=== PATIENT | female | born 1990 | race Caucasian/White ===

== ENCOUNTER 2019-06-06 22:12 | Emergency (ER) | payer OTHER, SELFPAY ==
[2019-06-07 00:08] LABS: Urine Blood NEGATIVE (NEG); Urine Glucose NEGATIVE (NEG); Urine Protein 1+ (NEG); Urine pH 8.5 (5.0-7.0)
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
[2019-06-07 02:39] VITALS: TEMP 97.6
[2019-06-07 02:41] VITALS: BP 110/73; O2SAT 98
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
== END 2019-06-07 00:48 | disposition home or self-care (01) ==
LOC: ER 22:12
DX: S00.90XA Unspecified superficial injury of unspecified part of head, initial encounter (principal); W22.8XXA Striking against or struck by other objects, initial encounter; Y93.9 Activity, unspecified; Y92.9 Unspecified place or not applicable; Z88.0 Allergy status to penicillin; Z88.1 Allergy status to other antibiotic agents
CPT/HCPCS: 70450; 72125; 81003; 81025; 99283

== ENCOUNTER 2019-10-22 21:50 | Emergency (ER) | payer SELFPAY ==
[2019-10-22] MEDS ORDERED: NA CHLORIDE 0.9% 250 ML ONE (22:39)
[2019-10-22] MEDS ORDERED: VANCOMYCIN 1 GM/VIAL ONE (22:39)
[2019-10-22 23:04] LABS: Absolute Lymphocytes (CBC) 1.5 K/uL (0.7-4.9); Basophils % 0.5 % (0-1.3); Hematocrit 40.2 % (36.0-45.0); Lymphocytes % 12.6 % (15.3-44.8); MPV 7.9 fL (7.6-11.3); RBC Red Blood Cell Count 4.48 M/uL (3.86-4.86)
--- NOTE | 2019-10-22 23:35 | EDPHYS ---
Physician Documentation [facility] Name: Sherie Andres Age: 29 yrs Sex: Female : 1990 Arrival Date: 10/22/2019 Time: 21:53 Bed 10 Private MD: ED Physician Willian Tineo HPI: 10/22 22:26 This 29 yrs old Female presents to ER via Ambulatory with complaints of kdr Toothache, Fever. 22:26 The patient presents with pain, swelling. The problem is located in the right cheek, kdr right buccal mucosa, right muslim and right zygomatic area. Onset: The symptoms/episode began/occurred gradually, Began on Friday and was seen by dentist on Friday and started on Clinda 300 mg PO TID which she states she has been taking religiously since then. She continues to have worsening pain in her right mandible and under her right orbit. Duration: The symptoms are continuous, and are steadily getting worse. Associated signs and symptoms: Pertinent positives: anorexia, fever, nausea, pain, swelling, facial, mandibular, Pertinent negatives: chills, dysphagia. Severity of symptoms: At their worst the symptoms were mild, in the emergency department the symptoms are unchanged. 22:26 The patient has not experienced similar symptoms in the past. The patient has been kdr recently seen by a physician: Dentist on Friday. 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 - Social history:: Smoking status: Patient uses tobacco products, a pack /3 days, Patient/guardian denies using alcohol, street drugs, IV drugs. - Ebola Screening: : No symptoms or risks identified at this time. ROS: 22:26 Eyes: Negative for injury, pain, redness, and discharge, Neck: Negative for injury, kdr pain, and swelling, Cardiovascular: Negative for chest pain, palpitations, and edema, Respiratory: Negative for shortness of breath, cough, wheezing, and pleuritic chest pain, Abdomen/GI: Negative for abdominal pain, nausea, vomiting, diarrhea, and constipation. 22:26 ENT: Positive for dental pain, Negative for ear pain, foreign body sensation, hearing loss, pulling at ears. Exam: 22:26 Constitutional: This is a well developed, well nourished patient who is awake, alert, kdr and in no acute distress. Eyes: Pupils equal round and reactive to light, extra-ocular motions intact. Lids and lashes normal. Conjunctiva and sclera are non-icteric and not injected. Cornea within normal limits. Periorbital areas with no swelling, redness, or edema. Neck: Trachea midline, no thyromegaly or masses palpated, and no cervical lymphadenopathy. Supple, full range of motion without nuchal rigidity, or vertebral point tenderness. No Meningismus. 22:26 Head/face: Noted is tenderness, that is mild, of the right cheek and right zygomatic area. Vital Signs: 22:10 BP 139 / 89; Pulse 106; Resp 18; Temp 98.9; Pulse Ox 100% on R/A; Weight 81.65 kg; mg2 Height 5 ft. 4 in. (162.56 cm); Pain 9/10; 10/23 00:18 BP 123 / 77; Pulse 84; Resp 16; Temp 98.7; Pulse Ox 99% on R/A; Pain 5/10; aa1 10/22 22:10 Body Mass Index 30.90 (81.65 kg, 162.56 cm) mg2 MDM: 10/22 22:26 Data reviewed: vital signs, nurses notes, lab test result(s), radiologic studies. kdr Counseling: I had a detailed discussion with the patient and/or guardian regarding: the historical points, exam findings, and any diagnostic results supporting the discharge/admit diagnosis, lab results, radiology results, the need for outpatient follow up. 23:34 Patient medically screened. kdr 10/22 22:21 Order name: CBC with Diff; Complete Time: 23:26 kdr 10/22 22:21 Order name: Chem 7; Complete Time: 23:26 kdr 10/22 22:25 Order name: CT Facial Bones W/ Con \T\ Mpr kdr Administered Medications: 23:08 Drug: vancoMYCIN 1 grams Route: IVPB; Infused Over: 2 hrs; Site: left antecubital; aa1 10/23 00:17 Follow up: IV Status: Completed infusion; IV Intake: 250ml aa 00:10 Drug: ZyrTEC - Cetirizine 10 mg Route: PO; :17 Follow up: Response: No adverse reaction; Medication administered at discharge. 00:10 Drug: morphine 4 mg Route: IVP; Site: left antecubital; 00:18 Follow up: Response: No adverse reaction; Medication administered at discharge. aa1 Disposition: 10/22/19 23:34 Discharged to Home. Impression: Dental Pain - right maxillary, Acute maxillary sinusitis, unspecified, Acute sinusitis. - Condition is Stable. - Discharge Instructions: Sinusitis, Adult, [id number]. - Prescriptions for pseudoephedrine HCl 30 mg Oral tablet - take 2 tablet by ORAL route every 4-6 hours As needed; 20 tablet. Levaquin 500 mg Oral Tablet - take 1 tablet by ORAL route once daily for 10 days; 10 tablet. - Medication Reconciliation Form, Thank You Letter, Antibiotic Education, Prescription Opioid Use form. - Follow up: Private Physician; When: 2 - 3 days; Reason: If symptoms return, Further diagnostic work-up, Recheck today's complaints, Continuance of care, Re-evaluation by your physician. - Problem is an ongoing problem. - Symptoms have improved. Signatures: Dispatcher [employer] EDMS Evelin Timmons RN RN aa1 Willian Tineo MD MD kdr Chauncey Hays RN RN mg2 Corrections: (The following items were deleted from the chart) 10/22 23:34 23:34 10/22/2019 23:34 Discharged to Home. Impression: Dental Pain. Condition is kdr Stable. Forms are Medication Reconciliation Form, Thank You Letter, Antibiotic Education, Prescription Opioid Use. Follow up: Private Physician; When: 2 - 3 days; Reason: If symptoms return, Further diagnostic work-up, Recheck today's complaints, Continuance of care, Re-evaluation by your physician. Problem is an ongoing problem. Symptoms have improved. kdr 23:35 23:34 10/22/2019 23:34 Discharged to Home. Impression: Dental Pain - right mandibular. kdr Condition is Stable. Forms are Medication Reconciliation Form, Thank You Letter, Antibiotic Education, Prescription Opioid Use. Follow up: Private Physician; When: 2 - 3 days; Reason: If symptoms return, Further diagnostic work-up, Recheck today's complaints, Continuance of care, Re-evaluation by your physician. Problem is an ongoing problem. Symptoms have improved. kdr 23:36 23:35 10/22/2019 23:34 Discharged to Home. Impression: Dental Pain - right maxillary. kdr Condition is Stable. Forms are Medication Reconciliation Form, Thank You Letter, Antibiotic Education, Prescription Opioid Use. Follow up: Private Physician; When: 2 - 3 days; Reason: If symptoms return, Further diagnostic work-up, Recheck today's complaints, Continuance of care, Re-evaluation by your physician. Problem is an ongoing problem. Symptoms have improved. kdr 10/23 00:19 10/22 23:36 10/22/2019 23:34 Discharged to Home. Impression: Dental Pain - right aa1 maxillary; Acute maxillary sinusitis, unspecified; Acute sinusitis. Condition is Stable. Forms are Medication Reconciliation Form, Thank You Letter, Antibiotic Education, Prescription Opioid Use. Follow up: Private Physician; When: 2 - 3 days; Reason: If symptoms return, Further diagnostic work-up, Recheck today's complaints, Continuance of care, Re-evaluation by your physician. Problem is an ongoing problem. Symptoms have improved. kdr
--- NOTE | 2019-10-22 23:35 | ER ---
Nurse's Notes [facility] Name: Sherie Andres Age: 29 yrs Sex: Female : 1990 Arrival Date: 10/22/2019 Time: 21:53 Bed 10 Private MD: Diagnosis: Dental Pain - right maxillary;Acute maxillary sinusitis, unspecified;Acute sinusitis Presentation: 10/22 22:08 Presenting complaint: Patient states: i have tooth abscess for 6 days now. jasen been to mg2 the dentist last Friday and im taking abx clindamycin for 4 days now. Transition of care: patient was not received from another setting of care. Onset of symptoms was October 2019. Risk Assessment: Do you want to hurt yourself or someone else? Patient reports no desire to harm self or others. Initial Sepsis Screen: Does the patient meet any 2 criteria? No. Patient's initial sepsis screen is negative. Does the patient have a suspected source of infection? No. Patient's initial sepsis screen is negative. Care prior to arrival: None. 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 - Social history:: Smoking status: Patient uses tobacco products, a pack /3 days, Patient/guardian denies using alcohol, street drugs, IV drugs. - Ebola Screening: : No symptoms or risks identified at this time. Screenin:30 Abuse screen: Denies threats or abuse. Denies injuries from another. Nutritional aa1 screening: No deficits noted. Tuberculosis screening: No symptoms or risk factors identified. Fall Risk None identified. Assessment: 22:30 General: Appears in no apparent distress. comfortable, Behavior is calm, cooperative, aa1 appropriate for age. Pain: Complains of pain in right buccal mucosa and right zygomatic area and right gnosticism and right cheek. Neuro: Level of Consciousness is awake, alert, obeys commands, Oriented to person, place, time, situation, Moves all extremities. Full function Gait is steady, Speech is normal. Respiratory: Airway is patent Respiratory effort is even, unlabored, Respiratory pattern is regular, symmetrical. GI: No signs and/or symptoms were reported involving the gastrointestinal system. : No signs and/or symptoms were reported regarding the genitourinary system. EENT: Poor dentition noted. Derm: Skin is intact, is healthy with good turgor, Skin is pink, warm \T\ dry. Musculoskeletal: Circulation, motion, and sensation intact. Capillary refill < 3 seconds. 23:47 Reassessment: Patient appears in no apparent distress at this time. Patient and/or aa1 family updated on plan of care and expected duration. Pain level reassessed. Patient is alert, oriented x 3, equal unlabored respirations, skin warm/dry/pink. Pt to be dc'd once IV vancomycin complete. 10/23 00:18 Reassessment: Patient appears in no apparent distress at this time. Patient is alert, aa1 oriented x 3, equal unlabored respirations, skin warm/dry/pink. Discussed d/c \T\ f/u instructions with pt; denies questions or concerns at this time. Ambulatory to lobby with steady gait Patient states feeling better. Vital Signs: 10/22 22:10 BP 139 / 89; Pulse 106; Resp 18; Temp 98.9; Pulse Ox 100% on R/A; Weight 81.65 kg; mg2 Height 5 ft. 4 in. (162.56 cm); Pain 9/10; 10/23 00:18 BP 123 / 77; Pulse 84; Resp 16; Temp 98.7; Pulse Ox 99% on R/A; Pain 5/10; aa1 10/22 22:10 Body Mass Index 30.90 (81.65 kg, 162.56 cm) mg2 ED Course: 10/22 21:53 Patient arrived in ED. jg7 22:10 Triage completed. mg2 22:12 Willian Tineo MD is Attending Physician. kdr 22:13 Arm band placed on. mg2 22:30 Patient has correct armband on for positive identification. Bed in low position. Call aa1 light in reach. 22:34 Evelin Timmons RN is Primary Nurse. aa1 22:40 Initial lab(s) drawn, by me, sent to lab. Inserted saline lock: 22 gauge in left jp3 antecubital area, using aseptic technique. Blood collected. Patient maintains SpO2 saturation greater than 95% on room air. 22:40 Chem 7 Sent. jp3 22:40 CBC with Diff Sent. jp3 23:04 CT Facial Bones W/ Con \T\ Mpr In Process Unspecified. EDMS 10/23 00:18 No provider procedures requiring assistance completed. IV discontinued, intact, aa1 bleeding controlled, No redness/swelling at site. Pressure dressing applied. Administered Medications: 10/22 23:08 Drug: vancoMYCIN 1 grams Route: IVPB; Infused Over: 2 hrs; Site: left antecubital; aa1 10/23 00:17 Follow up: IV Status: Completed infusion; IV Intake: 250ml aa1 00:10 Drug: ZyrTEC - Cetirizine 10 mg Route: PO; aa1 00:17 Follow up: Response: No adverse reaction; Medication administered at discharge. aa1 00:10 Drug: morphine 4 mg Route: IVP; Site: left antecubital; aa1 00:18 Follow up: Response: No adverse reaction; Medication administered at discharge. aa1 Intake: 00:17 IV: 250ml; Total: 250ml. aa1 Outcome: 10/22 23:34 Discharge ordered by . kdr 10/23 00:18 Discharged to home ambulatory, with friend. aa1 Condition: good Discharge instructions given to patient, Instructed on discharge instructions, follow up and referral plans. medication usage, Demonstrated understanding of instructions, follow-up care, medications, Prescriptions given X 2. 00:19 Patient left the ED. aa1 Signatures: Dispatcher [employer] EDMA Evelin Timmons RN RN aa1 Willian Tineo MD MD kdr Gardose, Michele, RN RN mg2 Pisarski, Jacob 3 Katherin Cotto7
[2019-10-22] MEDS ORDERED: CETIRIZINE HCL 5 MG TABLET ONE (23:46)
[2019-10-23] MEDS ORDERED: MORPHINE 2 MG/ML SYR ONE (00:10)
[2019-10-23 00:30] VITALS: BP 123/77; TEMP 98.7; O2SAT 99
--- NOTE | 2019-10-25 12:01 | RAD REPORT ---
EXAM DESCRIPTION: CT - Facial Bones W Con Mpr - 10/23/2019 6:09 am CLINICAL HISTORY: Dental abscess/infection COMPARISON: None. 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 FINDINGS: There is no acute fracture. Right maxillary sinus is nearly completely opacified. Many of the ethmoid air cells are moderately thickened. Orbits and globes are unremarkable. Mastoid air cells are clear. Temporomandibular joints are intact. There are no significant soft tissue abnormalities. IMPRESSION: No definite acute process. No evidence of dental abscess. Electronically signed by: Colt Mathews MD 10/22/2019 11:21 PM LAWN SPRINKLER SERVICER Due to temporary technical issues with the PACS/Fluency reporting system, reports are being signed by the in house radiologist as a courtesy to ensure prompt reporting. The interpreting radiologist is f ully responsible for the content of the report.
== END 2019-10-23 00:19 | disposition home or self-care (01) ==
LOC: ER 21:50
DX: J01.00 Acute maxillary sinusitis, unspecified (principal); Z72.0 Tobacco use; Z88.0 Allergy status to penicillin; Z88.1 Allergy status to other antibiotic agents
CPT/HCPCS: 36415; 70487; 76377; 80048; 85025; 96365; 96375; 99284; J2270; J7030; Q9967

== ENCOUNTER 2021-01-11 09:52 | Emergency (ER) | payer SELFPAY ==
[2021-01-11 10:59] LABS: Absolute Lymphocytes (CBC) 2.2 K/uL (0.7-4.9); Hematocrit 42.5 % (36.0-45.0); Lymphocytes % 37.3 % (15.3-44.8); MPV 7.6 fL (7.6-11.3); RBC Red Blood Cell Count 4.76 M/uL (3.86-4.86)
[2021-01-11] MEDS ORDERED: ONDANSETRON 4 MG/2 ML VIAL ONE (11:04)
[2021-01-11 11:24] LABS: ALT/SGPT 30 U/L (12-78); AST/SGOT 11 U/L (15-37); Alkaline Phosphatase 71 U/L (45-117); BUN Blood Urea Nitrogen 10 mg/dL (7-18); Bicarbonate 25 mmol/L (21-32); Bilirubin Direct 0.2 mg/dL (0-0.2); Bilirubin Total 0.8 mg/dL (0.2-1.0); Glucose Level 111 mg/dL (74-106); Lipase 109 U/L (73-393); Potassium 3.9 mmol/L (3.5-5.1); Sodium Level 141 mmol/L (136-145)
[2021-01-11] MEDS ORDERED: FAMOTIDINE 20 MG/2 ML VIAL IV ONE (11:43)
--- NOTE | 2021-01-11 13:31 | ER ---
Nurse's Notes [facility] Name: Sherie Andres Age: 30 yrs Sex: Female : 1990 Arrival Date: 01/11/2021 Time: 09:55 Bed 8 Private MD: Diagnosis: Nausea and vomiting;Diarrhea, unspecified Presentation: 01/11 10:05 Chief complaint: Patient states: v/d/headache since Friday. Coronavirus screen: Client sv denies travel out of the [place] in the last 14 days. diarrhea, headache, vomiting. Client presents with at least one sign or symptom that may indicate coronavirus-19. Ebola Screen: No symptoms or risks identified at this time. Initial Sepsis Screen: Does the patient meet any 2 criteria? HR > 90 bpm. No. Patient's initial sepsis screen is negative. Does the patient have a suspected source of infection? No. Patient's initial sepsis screen is negative. Risk Assessment: Do you want to hurt yourself or someone else? Patient reports no desire to harm self or others. Onset of symptoms was January 07, 2021. 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 Flu vaccine is not up to date. - Social history:: Smoking status: Patient denies any tobacco usage or history of. Screenin:51 Abuse screen: Denies threats or abuse. Denies injuries from another. Nutritional hb screening: No deficits noted. Tuberculosis screening: No symptoms or risk factors identified. Fall Risk None identified. Assessment: 10:50 General: Appears in no apparent distress. Behavior is calm, cooperative. Pain: Pain hb currently is 2 out of 10 on a pain scale. Neuro: Level of Consciousness is awake, alert, obeys commands, Oriented to person, place, time, situation. Cardiovascular: Patient's skin is warm and dry. Respiratory: Respiratory effort is even, unlabored, Respiratory pattern is regular, symmetrical. GI: Reports cramping, diarrhea, nausea, vomiting. : No signs and/or symptoms were reported regarding the genitourinary system. EENT: No signs and/or symptoms were reported regarding the EENT system. Derm: Skin is pink, warm \T\ dry. Musculoskeletal: No signs and/or symptoms reported regarding the musculoskeletal system. 12:01 Reassessment: Patient appears in no apparent distress at this time. Patient and/or hb family updated on plan of care and expected duration. Pain level reassessed. Patient is alert, oriented x 3, equal unlabored respirations, skin warm/dry/pink. Vital Signs: 10:05 BP 125 / 88; Pulse 91; Resp 16; Temp 99.2; Pulse Ox 100% ; Weight 79.83 kg; Height 5 sv ft. 4 in. (162.56 cm); Pain 0/10; 12:01 BP 99 / 77; Pulse 81; Resp 15; Pulse Ox 99% on R/A; hb 10:05 Body Mass Index 30.21 (79.83 kg, 162.56 cm) sv ED Course: 09:55 Patient arrived in ED. ds1 09:59 Willian Tineo MD is Attending Physician. kdr 10:06 Triage completed. sv 10:07 Arm band placed on Patient placed in an exam room, on a stretcher. sv 10:18 Jenn Barrett, RN is Primary Nurse. hb 10:46 Inserted saline lock: 24 gauge in right hand, using aseptic technique. Blood collected. hb 10:51 Patient has correct armband on for positive identification. Bed in low position. Call hb light in reach. 13:33 No provider procedures requiring assistance completed. IV discontinued, intact, sv bleeding controlled, No redness/swelling at site. Pressure dressing applied. Administered Medications: 10:50 Drug: Zofran (Ondansetron) 4 mg Route: IVP; Site: right hand; hb 11:30 Follow up: Response: No adverse reaction hb 11:22 Drug: Pepcid (famotidine) 20 mg Route: IVP; Site: right hand; hb Outcome: 13:30 Discharge ordered by MD. kdr 13:33 Discharged to home ambulatory. sv 13:33 Condition: improved 13:33 Discharge instructions given to patient, Instructed on discharge instructions, follow up and referral plans. medication usage, Demonstrated understanding of instructions, follow-up care, medications, Prescriptions given X 1. 13:34 Patient left the ED. sv Signatures: Nguyen Barker RN RN sv Rittger, Kevin, MD MD [facility] Tyrell, Babita ds1 Jenn Barrett RN RN hb
--- NOTE | 2021-01-11 13:31 | EDPHYS ---
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 Flu vaccine is not up to date. - Social history:: Smoking status: Patient denies any tobacco usage or history of. Vital Signs: 10:05 BP 125 / 88; Pulse 91; Resp 16; Temp 99.2; Pulse Ox 100% ; Weight 79.83 kg; Height 5 sv ft. 4 in. (162.56 cm); Pain 0/10; 12:01 BP 99 / 77; Pulse 81; Resp 15; Pulse Ox 99% on R/A; hb 10:05 Body Mass Index 30.21 (79.83 kg, 162.56 cm) sv MDM: 13:30 Patient medically screened. [facility] 01/11 09:59 Order name: Basic Metabolic Panel; Complete Time: 12:45 [facility] 01/11 09:59 Order name: CBC with Diff; Complete Time: 12:45 [facility] 01/11 09:59 Order name: Hepatic Function; Complete Time: 12:45 kdr 01/11 09:59 Order name: Lipase; Complete Time: 12:45 kdr 01/11 09:59 Order name: IV Saline Lock; Complete Time: 10:50 kdr 01/11 09:59 Order name: Labs collected and sent; Complete Time: 10:50 kdr 01/11 12:57 Order name: PO challenge; Complete Time: 13:14 sv Administered Medications: 10:50 Drug: Zofran (Ondansetron) 4 mg Route: IVP; Site: right hand; hb 11:30 Follow up: Response: No adverse reaction hb 11:22 Drug: Pepcid (famotidine) 20 mg Route: IVP; Site: right hand; hb Disposition: 01/11/21 13:30 Discharged to Home. Impression: Nausea and vomiting, Diarrhea, unspecified. - Condition is Stable. - Discharge Instructions: Nausea and Vomiting, Adult, [id number], Diarrhea, Adult, [id number]. - Prescriptions for Zofran 4 mg Oral Tablet - take 1 tablet by ORAL route every 4-6 hours As needed; 16 tablet. - Medication Reconciliation Form, Thank You Letter form. - Work release form (01/11/21 13:39). em1 - Family Work Release (01/11/21 13:38). hb - Follow up: Private Physician; When: 2 - 3 days; Reason: If symptoms return, Further diagnostic work-up, Recheck today's complaints, Continuance of care, Re-evaluation by your physician. - Problem is new. - Symptoms have improved. Addendum: 02/01/2021 14:53 Addendum: CC: n/v \T\ REINA, HPI: The patient states that she has had n/v and a headache kdr (not worst of her life) since Friday, ROS: Other than n/v \T\ REINA, the 10 point ROS is negative EXAM: WDWN WF mild distress. Head: WNL, Neck: Supple and FROM With limitation or pain. Chest: No injury or deformity, Lungs: CTAB, ABD: Soft NT BS normal, Neuro: No n/v deficits Extremity: normal, MDM: The patient was stable and improved with the care provided. She was happy with the care provided and the plan for discharge and follow-up. Signatures: Dispatcher [employer] Nguyen Mullen RN RN Willian Palacios MD MD kdr Baxter, Heather, RN RN hb Martinez, Eric emYuli Corrections: (The following items were deleted from the chart) 01/11 13:34 13:30 01/11/2021 13:30 Discharged to Home. Impression: Nausea and vomiting; Diarrhea, sv unspecified. Condition is Stable. Forms are Medication Reconciliation Form, Thank You Letter, Antibiotic Education, Prescription Opioid Use. Follow up: Private Physician; When: 2 - 3 days; Reason: If symptoms return, Further diagnostic work-up, Recheck today's complaints, Continuance of care, Re-evaluation by your physician. Problem is new. Symptoms have improved. kdr
[2021-01-12 03:22] VITALS: BP 99/77; O2SAT 99
[2021-01-12 03:26] VITALS: TEMP 97.6
== END 2021-01-11 13:34 | disposition home or self-care (01) ==
LOC: ER 09:52
DX: R19.7 Diarrhea, unspecified (principal); Z88.0 Allergy status to penicillin; Z88.1 Allergy status to other antibiotic agents
CPT/HCPCS: 36415; 80048; 80076; 83690; 85025; 96374; 96375; 99284; J2405

== ENCOUNTER 2021-10-30 18:48 | Emergency (ER) | payer SELFPAY ==
[2021-10-30] MEDS ORDERED: HYDROCODONE/CHLORPHEN 5 ML/OSYR ONE (19:28)
--- NOTE | 2021-10-30 20:04 | RAD REPORT ---
EXAM DESCRIPTION: Violeta Tafoya (2 Views)10/30/2021 7:41 pm CLINICAL HISTORY: Cough COMPARISON: 2012 FINDINGS: The lungs appear clear of acute infiltrate. The heart is normal size IMPRESSION: No acute abnormalities displayed
--- NOTE | 2021-10-30 20:40 | ER ---
Nurse's Notes [facility] Name: Sherie Andres Age: 31 yrs Sex: Female : 1990 Arrival Date: 10/30/2021 Time: 18:54 Bed 11 Private MD: Diagnosis: Cough Presentation: 10/30 19:19 Chief complaint: Patient states: Reports she had covid but 'it has gone away', was dx mk with covid on 10/20. Reports the coughing causes her to become SOB, while coughing in triage, pt still sating 100%. Coronavirus screen: Vaccine status:. Coronavirus screen: Vaccine status: Patient reports being unvaccinated. Ebola Screen: Patient negative for fever greater than or equal to 101.5 degrees Fahrenheit, and additional compatible Ebola Virus Disease symptoms. Initial Sepsis Screen: Does the patient meet any 2 criteria? No. Patient's initial sepsis screen is negative. Initial Sepsis Screen: Does the patient have a suspected source of infection? No. Patient's initial sepsis screen is negative. Risk Assessment: Do you want to hurt yourself or someone else? Patient reports no desire to harm self or others. Onset of symptoms was October 20, 2021. 19:19 Method Of Arrival: Ambulatory 19:19 Acuity: BRODY 4 Triage Assessment: 19:26 General: Appears in no apparent distress. Behavior is cooperative. Pain: Denies pain. Respiratory: Airway is patent Trachea midline Respiratory effort is even, unlabored, Respiratory pattern is regular, symmetrical, Breath sounds are clear. 19:26 Cardiovascular: Heart tones S1 S2 present Capillary refill < 3 seconds in bilateral fingers toes Patient's skin is warm and dry. Pulses are 2+ in right radial artery and left radial artery. Historical: - Allergies: 19:44 Cefaclor; 19:44 PENICILLINS; - PMHx: 19:44 colloid cysts/benign brain tumor; - Immunization history:: Adult Immunizations up to date, Client reports having NOT received the Covid vaccine. - Social history:: Smoking status: Reported history of juuling and/or vaping. Screenin:23 Abuse screen: Denies threats or abuse. Nutritional screening: No deficits noted. Tuberculosis screening: No symptoms or risk factors identified. Fall Risk None identified. No fall in past 12 months (0 pts). No secondary diagnosis (0 pts). No IV (0 pts). Ambulatory Aid- None/Bed Rest/Nurse Assist (0 pts). Gait- Normal/Bed Rest/Wheelchair (0 pts) Mental Status- Oriented to own ability (0 pts). Total Thayer Fall Scale indicates No Risk (0-24 pts). Assessment: 19:56 General: Appears in no apparent distress. comfortable, Behavior is calm, cooperative, ab2 appropriate for age. Pain: Denies pain. Neuro: No deficits noted. Level of Consciousness is awake, alert, obeys commands, Oriented to person, place, time, situation, Appropriate for age Coating Machine Feeder are equal bilaterally Moves all extremities. Gait is steady, Speech is slurred. Cardiovascular: No deficits noted. Denies chest pain, shortness of breath, Heart tones S1 S2 present Patient's skin is warm and dry. Respiratory: Reports cough that is Airway is patent Breath sounds with wheezes. GI: No deficits noted. No signs and/or symptoms were reported involving the gastrointestinal system. Abdomen is round non-distended. : No deficits noted. No signs and/or symptoms were reported regarding the genitourinary system. EENT: No deficits noted. No signs and/or symptoms were reported regarding the EENT system. Derm: No deficits noted. No signs and/or symptoms reported regarding the dermatologic system. Musculoskeletal: No deficits noted. No signs and/or symptoms reported regarding the musculoskeletal system. Vital Signs: 19:19 BP 132 / 96; Pulse 83; Resp 18; Temp 98.9(O); Pulse Ox 100% on R/A; Weight 80.29 kg; Height 5 ft. 4 in. (162.56 cm); 20:00 BP 111 / 68; Pulse 77; Resp 18; Pulse Ox 100% on R/A; Pain 0/10; ab2 19:19 Body Mass Index 30.38 (80.29 kg, 162.56 cm) ED Course: 18:54 Patient arrived in ED. mr 19:01 Hayley Austin FNP-C is [facility]. kb 19:01 Davey Villalobos MD is Attending Physician. kb 19:23 Triage completed. mk 19:42 Chest Pa And Lat (2 Views) XRAY In Process Unspecified. EDMS 19:57 Arm band placed on right wrist. ab2 19:57 No provider procedures requiring assistance completed. ab2 19:58 Patient has correct armband on for positive identification. ab2 20:44 Patient did not have IV access during this emergency room visit. ld1 Administered Medications: 19:30 Drug: Tussionex Pennkinetic ER (chlorpheniramine-hydrocodone) Suspension 5 ml Route: PO;mk Outcome: 20:40 Discharge ordered by . kb 20:44 Discharged to home ambulatory. ld1 20:44 Condition: stable 20:44 Discharge instructions given to patient, Instructed on discharge instructions, follow up and referral plans. medication usage, Demonstrated understanding of instructions, follow-up care, medications, Prescriptions given X 1. 20:44 Patient left the ED. ld1 Signatures: Dispatcher [employer] EDMS Hayley Austin, [employer]-Jayne Francis mr BeatrizCailin carter, RN RN ld1 Jessica Potts, RN RN Emmanuel Guerin ab2 Corrections: (The following items were deleted from the chart) 19:26 19:19 BP 132 / 96; Pulse 83bpm; Resp 18bpm; Pulse Ox 100% RA; Temp 98.9F Oral; mk beatrice
--- NOTE | 2021-10-30 20:41 | EDPHYS ---
Physician Documentation [facility] Name: Sherie Andres Age: 31 yrs Sex: Female : 1990 Arrival Date: 10/30/2021 Time: 18:54 Bed 11 Private MD: ED Physician Davey Villalobos HPI: 10/30 20:39 This 31 yrs old Female presents to ER via Ambulatory with complaints of Cough, kb Congestion. 20:39 The patient or guardian reports cough. Onset: The symptoms/episode began/occurred 10 kb day(s) ago. Severity of symptoms: At their worst the symptoms were moderate, in the emergency department the symptoms are unchanged. Modifying factors: The symptoms are alleviated by nothing, the symptoms are aggravated by nothing. Associated signs and symptoms: The patient has no apparent associated signs or symptoms. The patient has not experienced similar symptoms in the past. The patient has been recently seen by a physician:. Pt reports she was diagnosed with covid 10 days ago and still has the dry cough. States the cough is getting wrose. 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 - Social history:: Smoking status: Reported history of juuling and/or vaping. ROS: 20:39 Constitutional: Negative for fever, chills, and weight loss. kb 20:39 Respiratory: Positive for cough, Negative for dyspnea on exertion, hemoptysis, orthopnea, pleurisy, shortness of breath, sputum production, wheezing. 20:39 All other systems are negative. Exam: 20:39 Constitutional: This is a well developed, well nourished patient who is awake, alert, kb and in no acute distress. Head/Face: Normocephalic, atraumatic. ENT: Moist Mucous membranes Cardiovascular: Regular rate and rhythm with a normal S1 and S2. No gallops, murmurs, or rubs. No pulse deficits. Respiratory: Respirations even and unlabored. No increased work of breathing. Talking in full sentences Skin: Warm, dry with normal turgor. Normal color. MS/ Extremity: Pulses equal, no cyanosis. Neurovascular intact. Full, normal range of motion. Neuro: Awake and alert, GCS 15, oriented to person, place, time, and situation. Moves all extremities. Normal gait. Psych: Awake, alert, with orientation to person, place and time. Behavior, mood, and affect are within normal limits. Vital Signs: 19:19 BP 132 / 96; Pulse 83; Resp 18; Temp 98.9(O); Pulse Ox 100% on R/A; Weight 80.29 kg; mk Height 5 ft. 4 in. (162.56 cm); 20:00 BP 111 / 68; Pulse 77; Resp 18; Pulse Ox 100% on R/A; Pain 0/10; ab2 19:19 Body Mass Index 30.38 (80.29 kg, 162.56 cm) MDM: 19:24 Patient medically screened. kb 20:39 Data reviewed: vital signs, nurses notes. Data interpreted: Pulse oximetry: on room air kb is 100 %. Interpretation: normal. Counseling: I had a detailed discussion with the patient and/or guardian regarding: the historical points, exam findings, and any diagnostic results supporting the discharge/admit diagnosis, radiology results, the need for outpatient follow up, a family practitioner, to return to the emergency department if symptoms worsen or persist or if there are any questions or concerns that arise at home. 10/30 19:24 Order name: Chest Pa And Lat (2 Views) XRAY; Complete Time: 20:08 kb Administered Medications: 19:30 Drug: Tussionex Pennkinetic ER (chlorpheniramine-hydrocodone) Suspension 5 ml Route: PO; Disposition: 10/31 08:27 Co-signature as Attending Physician, Davey Villalobos MD I agree with the assessment and fiona plan of care. Disposition Summary: 10/30/21 20:40 Discharge Ordered Location: Home kb Condition: Stable kb Diagnosis - Cough kb Followup: kb - With: Emergency Department - When: As needed - Reason: Worsening of condition Followup: kb - With: Private Physician - When: 2 - 3 days - Reason: Recheck today's complaints, Continuance of care, Re-evaluation by your physician Discharge Instructions: - Discharge Summary Sheet kb - Cough, Adult, [id number] kb Forms: - Medication Reconciliation Form kb - Thank You Letter kb - Antibiotic Education kb - Prescription Opioid Use kb Prescriptions: - Tessalon Perles 100 mg Oral Capsule - take 1 capsule by ORAL route every 8 hours As needed; 15 capsule; Refills: 0, kb Product Selection Permitted Signatures: Dispatcher [employer] Hayley Reese, DIESEL DINKEY ENGINEERLynetteC JOSE-Davey Horowitz MD MD cha Kotarski, Madeline RN RN mk
[2021-10-30 20:53] VITALS: TEMP 98.9; O2SAT 100
[2021-10-30 20:55] VITALS: BP 111/68
== END 2021-10-30 20:44 | disposition home or self-care (01) ==
LOC: ER 18:48
DX: R05.9 Cough, unspecified (principal); Z88.0 Allergy status to penicillin; Z88.1 Allergy status to other antibiotic agents; Z86.16 Personal history of COVID-19
CPT/HCPCS: 71046

== ENCOUNTER 2022-03-09 05:16 | Inpatient (IN) | payer SELFPAY ==
[2022-03-09 06:46] LABS: Urine Blood Trace-lysed (Negative); Urine Glucose Negative (Negative); Urine Protein Negative (Negative); Urine Specific Gravity 1.015 (1.005-1.030)
[2022-03-09 06:55] LABS: Absolute Lymphocytes (CBC) 3.1 K/uL (0.7-4.9); Lymphocytes % 30.7 % (15.3-44.8); MPV 7.3 fL (7.6-11.3); RBC Red Blood Cell Count 4.86 M/uL (3.86-4.86)
[2022-03-09 07:12] LABS: Urine Specific Gravity/Preg 1.015 (1.005-1.030)
[2022-03-09 07:30] LABS: BUN Blood Urea Nitrogen 9 mg/dL (7-18); Bicarbonate 26 mmol/L (21-32); Glomerular Filtration Rate 101 ml/min (=/>90); Glucose Level 105 mg/dL (74-106); Potassium 3.9 mmol/L (3.5-5.1); Sodium Level 138 mmol/L (136-145)
[2022-03-09 07:42] LABS: Troponin High Sensitivity < 3.0 pg/mL (<58.9)
[2022-03-09] MEDS ORDERED: LIDOCAINE VISCOUS 2% SOLN 15 ML UDC ONE (08:08)
[2022-03-09] MEDS ORDERED: MAGNES/ALUMIN/SIMET 30ML UCUP ONE (08:08)
--- NOTE | 2022-03-09 08:26 | RAD REPORT ---
EXAM DESCRIPTION: CT - Thorax W/ Con - 03/09/2022 8:12 am CLINICAL HISTORY: Chest pain COMPARISON: None TECHNIQUE: Computed axial tomography of the chest was obtained. 100 cc Isovue 300 was administered i ntravenously. All CT scans are performed using dose optimization technique as appropriate and may include automated exposure control or mA/KV adjustment according to patient size. FINDINGS: The lungs appear clear. No mediastinal or hilar lymphadenopathy is seen. A pleural effusion is not present. A pericardial effusion is not seen. A bovine aorta Borderline gallbladder wall thickening IMPRESSION: Unremarkable CT chest Borderline gallbladder wall thickening
--- NOTE | 2022-03-09 08:27 | RAD REPORT ---
EXAM DESCRIPTION: Violeta Single View03/09/2022 7:07 am CLINICAL HISTORY: Chest pain COMPARISON: October 2021 FINDINGS: The lungs appear clear of acute infiltrate. The heart is normal size IMPRESSION: No acute abnormalities displayed
--- NOTE | 2022-03-09 10:27 | RAD REPORT ---
EXAM DESCRIPTION: US - Abdomen Exam Limited - 03/09/2022 9:54 am CLINICAL HISTORY: Abdominal pain. COMPARISON: CT March 09, 2022 FINDINGS: Multiple small gallstones. Portions of the gallbladder wall are borderline thickened The biliary tree is normal caliber. IMPRESSION: Cholelithiasis Borderline gallbladder wall thickening
[2022-03-09] MEDS ORDERED: NA CHLORIDE 0.9% 500 ML ONE (11:08)
[2022-03-09] MEDS ORDERED: KETOROLAC 30 MG/ML INJ ONE (11:08)
[2022-03-09 11:24] LABS: Albumin 4.2 g/dL (3.4-5.0); Bilirubin Direct 0.2 mg/dL (0-0.2); Bilirubin Total 0.7 mg/dL (0.2-1.0); Protein, Total 8.2 g/dL (6.4-8.2)
--- NOTE | 2022-03-09 11:40 | EDPHYS ---
Physician Documentation [facility] Name: Sherie Andres Age: 32 yrs Sex: Female : 1990 Arrival Date: 03/09/2022 Time: 05:18 Bed 8 Private MD: ED Physician Willian Tineo HPI: 03/09 12:05 This 32 yrs old Female presents to ER via Ambulatory with complaints of Chest Pain > 30 kdr y/o, Back Pain, Vomiting. 12:11 The patient or guardian reports chest pain that is located primarily in the epigastric kdr area. The pain does not radiate. Associated signs and symptoms: Pertinent positives: abdominal pain, nausea. The chest pain is described as aching, burning, squeezing, stabbing. Duration: The patient or guardian reports a single episode, that is still ongoing, but improving. Modifying factors: The symptoms are alleviated by nothing. the symptoms are aggravated by movement, palpation of area. Severity of pain: At its worst the pain was moderate severe just prior to arrival, in the emergency department the pain is unchanged. The patient has not experienced similar symptoms in the past. The patient has not recently seen a physician. Patient states that last night she started having chest pain. She stated that the pain wraps around her lower thorax and upper abdomen. She has not had discomfort like this before. She had nausea and limited vomiting.. PARAFFINER: 05:59 LMP N/A - control method bb Historical: - Allergies: 05:59 Cefaclor; bb 05:59 PENICILLINS; bb - PMHx: 05:59 colloid cysts/benign brain tumor; bb - PSHx: 05:59 section; Appendectomy; bb - Immunization history:: Client reports having NOT received the Covid vaccine. - Social history:: Smoking status: Patient denies any tobacco usage or history of. ROS: 12:11 Constitutional: Negative for fever, chills, and weight loss, Eyes: Negative for injury, kdr pain, redness, and discharge, Neck: Negative for injury, pain, and swelling, Cardiovascular: Negative for chest pain, palpitations, and edema, Respiratory: Negative for shortness of breath, cough, wheezing, and pleuritic chest pain, Back: Negative for injury and pain, : Negative for injury, bleeding, discharge, and swelling, MS/Extremity: Negative for injury and deformity, Skin: Negative for injury, rash, and discoloration, Neuro: Negative for headache, weakness, numbness, tingling, and seizure activity. Psych: Negative for depression, anxiety, suicide ideation, homicidal ideation, and hallucinations, Allergy/Immunology: Negative for hives, rash, and allergies, Endocrine: Negative for neck swelling, polydipsia, polyuria, polyphagia, and marked weight changes, Hematologic/Lymphatic: Negative for swollen nodes, abnormal bleeding, and unusual bruising. 12:11 Abdomen/GI: Positive for abdominal pain, nausea and vomiting, Negative for constipation, abdominal cramps, abdominal distension, anorexia, dysphagia, hematemesis, black/tarry stool, rectal pain, rectal bleeding, bowel incontinence. Exam: 12:11 Constitutional: This is a well developed, well nourished patient who is awake, alert, kdr and in mild distress. Head/Face: Normocephalic, atraumatic. Eyes: Pupils equal round and reactive to light, extra-ocular motions intact. Lids and lashes normal. Conjunctiva and sclera are non-icteric and not injected. Cornea within normal limits. Periorbital areas with no swelling, redness, or edema. Neck: Trachea midline, no thyromegaly or masses palpated, and no cervical lymphadenopathy. Supple, full range of motion without nuchal rigidity, or vertebral point tenderness. No Meningismus. Chest/axilla: Normal chest wall appearance and motion. Nontender with no deformity. No lesions are appreciated. Cardiovascular: Regular rate and rhythm with a normal S1 and S2. No gallops, murmurs, or rubs. Normal PMI, no JVD. No pulse deficits. Respiratory: Lungs have equal breath sounds bilaterally, clear to auscultation and percussion. No rales, rhonchi or wheezes noted. No increased work of breathing, no retractions or nasal flaring. Back: No spinal tenderness. No costovertebral tenderness. Full range of motion. Skin: Warm, dry with normal turgor. Normal color with no rashes, no lesions, and no evidence of cellulitis. MS/ Extremity: Pulses equal, no cyanosis. Neurovascular intact. Full, normal range of motion. Neuro: Awake and alert, GCS 15, oriented to person, place, time, and situation. Cranial nerves II-XII grossly intact. Motor strength 5/5 in all extremities. Sensory grossly intact. Cerebellar exam normal. Normal gait. Psych: Awake, alert, with orientation to person, place and time. Behavior, mood, and affect are within normal limits. 12:11 Abdomen/GI: Inspection: abdomen appears normal, Bowel sounds: active, Palpation: soft, mild abdominal tenderness, in the epigastric area, right upper quadrant and left upper quadrant, mass, is not appreciated, rebound tenderness, is not appreciated. Vital Signs: 05:58 BP 122 / 90; Pulse 76; Resp 16 S; Temp 99.2(O); Pulse Ox 99% on R/A; Weight 79.83 kg bb (R); Height 5 ft. 4 in. (162.56 cm) (R); Pain 7/10; 07:00 BP 121 / 91; Pulse 78; Resp 16; Pulse Ox 100% ; bp 08:30 BP 115 / 82; Pulse 71; Resp 15; Pulse Ox 100% ; bp 10:30 BP 129 / 91; Pulse 83; Resp 24; Pulse Ox 99% ; bp 12:30 BP 107 / 71; Pulse 66; Resp 20; Pulse Ox 100% ; bp 14:54 BP 98 / 77; Pulse 69; Resp 16; Pulse Ox 99% ; bp 16:00 BP 99 / 65; Pulse 70; Resp 12; Pulse Ox 99% ; bp 17:00 BP 107 / 72; Pulse 77; Resp 17; Pulse Ox 99% ; bp 17:58 BP 112 / 69; Pulse 79; Resp 19; Pulse Ox 100% ; bp 05:58 Body Mass Index 30.21 (79.83 kg, 162.56 cm) bb MDM: 11:39 Patient medically screened. kdr 12:11 Data reviewed: vital signs, nurses notes, lab test result(s), radiologic studies. kdr Counseling: I had a detailed discussion with the patient and/or guardian regarding: the historical points, exam findings, and any diagnostic results supporting the discharge/admit diagnosis, lab results, radiology results, the need for further work-up and treatment in the hospital. 03/09 06:31 Order name: Basic Metabolic Panel; Complete Time: : kd3 03/09 06:31 Order name: CBC with Diff; Complete Time: : kd3 03/09 06:31 Order name: Troponin HS; Complete Time: kd3 03/09 06:46 Order name: Urine Dipstick-Ancillary; Complete Time: 07:28 EDMS 03/09 06:50 Order name: Test Urine - POC; Complete Time: 07:28 sp 03/09 10:37 Order name: LFT's; Complete Time: 11:26 kdr 03/09 06:31 Order name: XRAY Chest (1 view); Complete Time: 09:28 kd3 03/09 07:30 Order name: CT Chest W/ Con; Complete Time: 09:28 kdr 03/09 09:29 Order name: US Abdomen Limited; Complete Time: 10:28 kdr 03/09 13:57 Order name: COVID-19 SARS RT PCR (Document "Date of Onset" if Symptomatic) [facility] 03/09 14:45 Order name: CBC with Automated Diff EDMO 03/09 14:45 Order name: CBC with Automated Diff EDMO 03/09 14:45 Order name: Comprehensive Metabolic Panel EDMO 03/09 14:45 Order name: Comprehensive Metabolic Panel [facility] 03/09 06:31 Order name: EKG; Complete Time: 06:32 kd3 03/09 06:31 Order name: Cardiac monitoring; Complete Time: 06:32 kd3 03/09 06:31 Order name: EKG - Nurse/Tech; Complete Time: 06:31 kd3 03/09 06:31 Order name: IV Saline Lock; Complete Time: 06:32 kd03/09 06:31 Order name: Labs collected and sent; Complete Time: 06:32 kd3 03/09 14:45 Order name: CONS Physician Consult EDMO 03/09 14:45 Order name: Full Liquid EDMO 03/09 14:45 Order name: NPO EDMO 03/09 06:31 Order name: O2 Per Protocol; Complete Time: 06:32 kd3 03/09 06:31 Order name: O2 Sat Monitoring; Complete Time: 06:32 kd3 03/09 06:37 Order name: Urine Dipstick-Ancillary (obtain specimen); Complete Time: 06:53 kd3 03/09 06:38 Order name: Urine Test (obtain specimen); Complete Time: 06:53 kd3 Administered Medications: 08:15 Drug: GI Cocktail without - (Maalox Suspension 30 ml, Lidocaine Liquid 2 % 15 bp ml) Route: PO; 08:44 Follow up: Response: No adverse reaction bp 11:00 Drug: Ketorolac 15 mg Route: IVP; Site: left antecubital; bp 11:45 Follow up: Response: No adverse reaction; Pain is decreased bp 11:00 Drug: NS 0.9% 500 ml Route: IV; Rate: bolus; Site: left antecubital; bp 13:17 Follow up: IV Status: Completed infusion; IV Intake: 500ml bp 12:00 Drug: morphine 4 mg Route: IVP; Infused Over: 4 mins; Site: left antecubital; bp 13:17 Follow up: Response: Pain is decreased bp 12:00 Drug: Zofran (Ondansetron) 4 mg Route: IVP; Site: left antecubital; bp 13:17 Follow up: Response: No adverse reaction bp 12:00 Drug: Cipro (ciprofloxacin) 500 mg Route: PO; bp 13:17 Follow up: Response: No adverse reaction bp 12:00 Drug: Flagyl (metroNIDAZOLE) 500 mg Volume: 100 ml; Route: IVPB; Rate: 200 ml/hr; bp Infused Over: 30 mins; Site: left antecubital; 13:17 Follow up: IV Status: Completed infusion; IV Intake: 100ml bp 12:30 Drug: NS 0.9% 1000 ml Route: IV; Rate: 125 ml/hr; Site: left antecubital; bp 18:02 Follow up: IV Status: Completed infusion; IV Intake: 1000ml bp Disposition Summary: 03/09/22 11:39 Hospitalization Ordered Hospitalization Status: Observation kdr Provider: [facility] kdr Condition: Fair kdr Problem: new kdr Symptoms: have improved kdr Bed/Room Type: Standard kdr Room Assignment: 217(03/09/22 16:31) ja1 Diagnosis - Upper abdominal pain, unspecified kdr - Acute cholecystitis kdr Forms: - Medication Reconciliation Form kdr - SBAR form kdr Signatures: Dispatcher [employer] EDMS Willian Tineo MD MD kdr Daniela Hernandez RN RN Anjel Sabillon, RN RN ja1 Beto Kidd RN RN bp Amy Lee RN RN kd3 Corrections: (The following items were deleted from the chart) 16:31 11:39 kdr ja1
--- NOTE | 2022-03-09 11:40 | ER ---
Nurse's Notes [facility] Name: Sherie Andres Age: 32 yrs Sex: Female : 1990 Arrival Date: 03/09/2022 Time: 05:18 Bed 8 Private MD: Diagnosis: Upper abdominal pain, unspecified;Acute cholecystitis Presentation: 03/09 05:58 Chief complaint: Patient states: she started having chest pain last night which then bb she started feeling it in her back causing her to vomit. Coronavirus screen: At this time, the client does not indicate any symptoms associated with coronavirus-19. Ebola Screen: No symptoms or risks identified at this time. Initial Sepsis Screen: Does the patient meet any 2 criteria? No. Patient's initial sepsis screen is negative. Does the patient have a suspected source of infection? No. Patient's initial sepsis screen is negative. Risk Assessment: Do you want to hurt yourself or someone else? Patient reports no desire to harm self or others. Onset of symptoms was March 08, 2022. 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 - Social history:: Smoking status: Patient denies any tobacco usage or history of. Screenin:06 Abuse screen: Denies threats or abuse. Denies injuries from another. Nutritional kd3 screening: No deficits noted. Tuberculosis screening: No symptoms or risk factors identified. Fall Risk None identified. Assessment: 06:05 General: Appears in no apparent distress. Behavior is calm, cooperative. Pain: Pain kd3 radiates to thoracic area. Cardiovascular: Patient's skin is warm and dry. Rhythm is sinus rhythm. 07:00 Reassessment: RECD REPORT FROM AMY ARCE. 32YO WF P/W CP AND SOB. CT PE PENDING. bp 07:00 Pain: Pain began suddenly. bp 08:30 Reassessment: PT RETURNED FROM CT. bp 10:30 Reassessment: No changes from previously documented assessment. Patient and/or family bp updated on plan of care and expected duration. Pain level reassessed. PT RETURNED FROM U/S. DISPO PENDING. 12:30 Reassessment: Patient appears in no apparent distress at this time. ADMIT INITIATED. OR bp TOMORROW AM Patient states symptoms have improved. 14:54 Reassessment: No changes from previously documented assessment. Patient and/or family bp updated on plan of care and expected duration. Pain level reassessed. 17:00 Reassessment: No changes from previously documented assessment. Patient and/or family bp updated on plan of care and expected duration. Pain level reassessed. ADMIT IN PROCESS. 17:59 Reassessment: ADMIT COMPLETE. ROOM ASSIGNED. bp Vital Signs: 05:58 BP 122 / 90; Pulse 76; Resp 16 S; Temp 99.2(O); Pulse Ox 99% on R/A; Weight 79.83 kg bb (R); Height 5 ft. 4 in. (162.56 cm) (R); Pain 7/10; 07:00 BP 121 / 91; Pulse 78; Resp 16; Pulse Ox 100% ; bp 08:30 BP 115 / 82; Pulse 71; Resp 15; Pulse Ox 100% ; bp 10:30 BP 129 / 91; Pulse 83; Resp 24; Pulse Ox 99% ; bp 12:30 BP 107 / 71; Pulse 66; Resp 20; Pulse Ox 100% ; bp 14:54 BP 98 / 77; Pulse 69; Resp 16; Pulse Ox 99% ; bp 16:00 BP 99 / 65; Pulse 70; Resp 12; Pulse Ox 99% ; bp 17:00 BP 107 / 72; Pulse 77; Resp 17; Pulse Ox 99% ; bp 17:58 BP 112 / 69; Pulse 79; Resp 19; Pulse Ox 100% ; bp 05:58 Body Mass Index 30.21 (79.83 kg, 162.56 cm) bb ED Course: 05:18 Patient arrived in ED. bp1 05:59 Triage completed. bb 05:59 Arm band placed on Patient placed in an exam room, on a stretcher, on pulse oximetry. bb 06:05 Amy Lee, RN is Primary Nurse. kd3 06:06 Patient has correct armband on for positive identification. Placed in gown. Bed in low kd3 position. Client placed on continuous cardiac and pulse oximetry monitoring. NIBP monitoring applied. phototypesetting equipment monitor on. Pulse ox on. NIBP on. 06:06 Patient maintains SpO2 saturation greater than 95% on room air. kd3 06:32 Inserted saline lock: 22 gauge in left antecubital area, using aseptic technique. Blood kd3 collected. Missed attempt(s): Bleeding controlled, band aid applied, catheter tip intact. 07:08 XRAY Chest (1 view) In Process Unspecified. EDMS 07:09 Willian Tineo MD is Attending Physician. kdr 07:14 Primary Nurse role handed off by Amy Lee, RN bp 07:14 Beto Kidd, CLAUDE is Primary Nurse. bp 08:14 CT Chest W/ Con In Process Unspecified. EDMS 09:55 US Abdomen Limited In Process Unspecified. EDMS 11:38 Stephanie Garcia MD is Hospitalizing Provider. kdr 17:57 No provider procedures requiring assistance completed. Patient admitted, IV remains in bp place. Administered Medications: 08:15 Drug: GI Cocktail without - (Maalox Suspension 30 ml, Lidocaine Liquid 2 % 15 bp ml) Route: PO; 08:44 Follow up: Response: No adverse reaction bp 11:00 Drug: Ketorolac 15 mg Route: IVP; Site: left antecubital; bp 11:45 Follow up: Response: No adverse reaction; Pain is decreased bp 11:00 Drug: NS 0.9% 500 ml Route: IV; Rate: bolus; Site: left antecubital; bp 13:17 Follow up: IV Status: Completed infusion; IV Intake: 500ml bp 12:00 Drug: morphine 4 mg Route: IVP; Infused Over: 4 mins; Site: left antecubital; bp 13:17 Follow up: Response: Pain is decreased bp 12:00 Drug: Zofran (Ondansetron) 4 mg Route: IVP; Site: left antecubital; bp 13:17 Follow up: Response: No adverse reaction bp 12:00 Drug: Cipro (ciprofloxacin) 500 mg Route: PO; bp 13:17 Follow up: Response: No adverse reaction bp 12:00 Drug: Flagyl (metroNIDAZOLE) 500 mg Volume: 100 ml; Route: IVPB; Rate: 200 ml/hr; bp Infused Over: 30 mins; Site: left antecubital; 13:17 Follow up: IV Status: Completed infusion; IV Intake: 100ml bp 12:30 Drug: NS 0.9% 1000 ml Route: IV; Rate: 125 ml/hr; Site: left antecubital; bp 18:02 Follow up: IV Status: Completed infusion; IV Intake: 1000ml bp Medication: 17:59 VIS not applicable for this client. bp Intake: 13:17 IV: 500ml; Total: 500ml. bp 13:17 IV: 100ml; Total: 600ml. bp 18:02 IV: 1000ml; Total: 1600ml. bp Outcome: 11:39 Decision to Hospitalize by Provider. kdr 17:59 Admitted to Med/surg accompanied by nurse, via stretcher, room 217, with chart, Report bp called to MARQUIS ARCE 17:59 Condition: stable 17:59 Instructed on the need for admit. 18:56 Patient left the ED. bp Signatures: Dispatcher [employer] EDMS Willian Tineo MD MD kdr Daniela Hernandez RN RN bb Beto Kidd RN RN bp Yola Rico [facility] Amy Lee, RN RN kd3 Corrections: (The following items were deleted from the chart) 14:56 14:54 BP 121 / 79; Pulse 111bpm; Resp 21bpm; Pulse Ox 99%; bp bp
[2022-03-09] MEDS ORDERED: CIPROFLOXACIN HCL 500 MG TAB ONE (12:10)
[2022-03-09] MEDS ORDERED: ONDANSETRON 4 MG/2 ML VIAL ONE (12:11)
[2022-03-09] MEDS ORDERED: MORPHINE 4 MG/ML SYR ONE (12:11)
[2022-03-09] MEDS ORDERED: METRONIDAZOLE 500mg IVPB 500 MG/100 ML BAG IV ONE (12:11)
--- NOTE | 2022-03-09 13:23 | P.HP ---
Certification for Inpatient Patient admitted to: Observation With expected LOS: <2 Midnights Patient will require the following post-hospital care: None Practitioner: I am a practitioner with admitting privileges, knowledge of patient current condition, hospital course, and medical plan of care. Services: Services provided to patient in accordance with Admission requirements found in Title 42 Section 412.3 of the Code of Federal Regulations Patient History Date of Service: 03/09/22 Reason for admission: Chest pain History of Present Illness: 32-year-old female with no significant past medical history presented after developing epigastric area pain radiating to the right upper quadrant and to the back since the last 2 days. Symptoms have been associated with 1 episode of vomiting last p.m. Patient denies any headache dizziness. She denies any shortness of breath or palpitation. On arrival in the ED imaging studies shows evidence of cholelithiasis with mild thickening of the gallbladder on CT. General surgery has been consulted and plan to take patient for surgery in a.m. Patient is being admitted for acute cholecystitis with cholelithiasis. Allergies cefaclor [From Ceclor] Allergy (Mild, Verified 11/25/12 16:44) Hives Penicillins Allergy (Mild, Verified 11/25/12 16:44) Hives/Rash Home Medications: Iron Carb,Gl/FA/B12/C/Docusate [Ferralet 90 Tablet] 1 cap PO DAILY 11/14/14 Pnv with Ca,No.71/Iron/FA [ Vitamin Tablet] 1 each PO DAILY 11/14/14 Codeine/APAP [Tylenol W/Codeine #3 tab] 1 tab PO Q6HP PRN #30 tab 11/16/14 - Past Medical/Surgical History Diabetic: Yes -: Gestational diabetes with this -: C/section 02/19/10 - Social History Smoking Status: Never smoker Alcohol use: No CD- Drugs: No Caffeine use: No Place of Residence: Home Review of Systems 10-point ROS is otherwise unremarkable Physical Examination - Physical Exam General: Alert, In no apparent distress, Oriented x3, Obese HEENT: Atraumatic, Normocephalic, PERRLA Neck: Supple, 2+ carotid pulse no bruit, JVD not distended Respiratory: Clear to auscultation bilaterally, Normal air movement Cardiovascular: Normal pulses, Regular rate/rhythm, Normal S1 S2 Gastrointestinal: Normal bowel sounds, Soft and benign, Non-distended Musculoskeletal: No clubbing, No swelling Integumentary: No rashes, No breakdown Neurological: Normal speech, Normal strength at 5/5 x4 extr Urinary: Dialysis catheter External genitalia: No edema, No lesions Rectal: Normal, Average - Studies Laboratory Data (last 24 hrs) 03/09/22 10:37: Total Bilirubin 0.7, AST 9 L, ALT 26, Alkaline Phosphatase 72 03/09/22 06:39: WBC 9.9, Hgb 14.5, Hct 43.0, Plt Count 324 03/09/22 06:39: Sodium 138, Potassium 3.9, BUN 9, Creatinine 0.80, Glucose 105 Assessment and Plan - Advance Directives Does patient have a Living Will: No Does patient have a Durable POA for Healthcare: No Physician Review: Patient Assessed, Agree with Above Assessment and Plan Physician Review Additional Text: CT abdomen as well as abdominal ultrasound- FINDINGS: Multiple small gallstones. Portions of the gallbladder wall are borderline thickened The biliary tree is normal caliber. IMPRESSION: Cholelithiasis Borderline gallbladder wall thickening Impression Presumed acute cholecystitis Epigastric pain Plan We will admit to observation Gentle IV fluid Surgical consult Start empirical antibiotics Possible lap francois in a.m. Subcutaneous heparin for now IV pain regimen Dispo possible home in a.m. post Francois Time Spent Managing Pts Care (In Minutes): 65
[2022-03-09] MEDS ORDERED: MORPHINE 2 MG/ML SYR IV PRN (14:41)
[2022-03-09 19:30] VITALS: BMI 28.0
[2022-03-09] MEDS: NA CHLORIDE 0.9% 1,000 ML IV SCH (19:53)
[2022-03-09] MEDS: Levofloxacin500mg IV 500 MG/100 ML BAG IV SCH (19:53)
[2022-03-09] MEDS: METRONIDAZOLE 500mg IVPB 500 MG/100 ML BAG IV SCH (19:53)
[2022-03-09] MEDS: FAMOTIDINE 20 MG TAB PO SCH ×2 (19:54→20:35)
[2022-03-09] MEDS: ONDANSETRON 4 MG/2 ML VIAL IV PRN (22:03)
[2022-03-10] MEDS: NA CHLORIDE 0.9% 1,000 ML IV SCH ×4 (01:00→22:51)
[2022-03-10] MEDS: METRONIDAZOLE 500mg IVPB 500 MG/100 ML BAG IV SCH ×3 (01:43→16:27)
[2022-03-10 06:06] LABS: Hematocrit 36.8 % (36.0-45.0); RBC Red Blood Cell Count 4.17 M/uL (3.86-4.86)
[2022-03-10 06:07] LABS: Absolute Lymphocytes (CBC) 2.6 K/uL (0.7-4.9); Lymphocytes % 36.2 % (15.3-44.8); MPV 7.2 fL (7.6-11.3)
[2022-03-10 06:25] LABS: Bilirubin Total 1.2 mg/dL (0.2-1.0); Potassium 4.1 mmol/L (3.5-5.1); Protein, Total 5.9 g/dL (6.4-8.2)
[2022-03-10] MEDS ORDERED: Ringers Lactate 1,000 ML IV ONE (08:34)
[2022-03-10] MEDS: FAMOTIDINE 20 MG TAB PO SCH ×2 (08:42→19:43)
--- NOTE | 2022-03-10 08:47 | P.CNS ---
Date of Consult: 03/10/22 Reason for consult: Abdominal pain History of present illness: Patient is a 32-year-old female with long history of biliary colic. Patient had an episode on Friday after eating barbecue and baked potato that was severe. Patient had right upper quadrant abdominal pain going to the back associated with nausea and vomiting. Pain persisted. Patient came to the emergency room and work-up revealed cholelithiasis with possible cholecystitis and I was consulted. Patient's pain was difficult to control in the ER therefore patient was admitted for parenteral pain management and cholecystectomy. Patient denies diarrhea or constipation. Patient denies blood in her stool or urine. No dysuria. Patient denies sore throat, runny nose, headaches, dizziness, chest pain, fever or chills. Review of systems: Otherwise unremarkable Past medical history: Gestational diabetes Past surgical history: x2 and laparoscopic appendectomy Allergies: None Social history: Patient denies smoking or drinking alcohol Family history: Heart disease and diabetes Vital signs: Stable, afebrile Physical exam:Awake alert oriented x3 Head and neck exam: Cranial nerves II through XII grossly within normal limits, no neck masses, no JVD, throat clear, neck supple Chest: Clear Heart: S1-S2 Abdomen: Soft, nondistended, positive bowel sounds, minimal tenderness in the right upper quadrant with no rebound rigidity or guarding Extremity: Neurovascular intact, nontender Neuro: Nonfocal Diagnostic data: LFTs are essentially within normal limits, ultrasound shows cholelithiasis with borderline gallbladder wall thickening Assessment: Acute and chronic cholecystitis with cholelithiasis Plan/recommendation: Admit, n.p.o., IV fluids, IV antibiotics and to the OR for laparoscopic cholecystectomy possible open. Patient understands risk benefits alternatives agrees to procedure. CC:
[2022-03-10] MEDS ORDERED: propofoL 200 MG/20 ML VIAL IV ONE (08:57)
[2022-03-10] MEDS ORDERED: LIDOCAINE 1% MPF 2 ML AMPULE ONE (08:58)
[2022-03-10] MEDS ORDERED: FENTANYL CITR 100 MCG/2 ML ONE (08:59)
[2022-03-10] MEDS ORDERED: ROCURONIUM 50 MG/5 ML VIAL IV ONE (09:00)
[2022-03-10] MEDS ORDERED: dexAMETHasone 10 MG/ML VIAL ONE (09:16)
[2022-03-10] MEDS ORDERED: KETOROLAC 30 MG/ML INJ ONE (09:16)
[2022-03-10] MEDS ORDERED: GLYCOPYRROLATE 0.2 MG/ML SYR ONE ×2 (09:47→09:48)
[2022-03-10] MEDS ORDERED: ONDANSETRON 4 MG/2 ML VIAL ONE ×2 (09:47→10:28)
--- NOTE | 2022-03-10 10:11 | P.OP ---
Date of Service: 03/10/22 Preop diagnosis: Acute and chronic cholecystitis with cholelithiasis Postop diagnosis: Same with extensive adhesions Procedure performed: Laparoscopic cholecystectomy, lysis of adhesions Surgeon: Sim Trinidad MD Assistant Case Manager: Flakita DOVER Estimated blood loss: Minimal Specimen: Gallbladder Findings: As above Anesthesia: General Complications: None Drains: None Fluids and blood products: Nonapplicable Disposition: Recovery room Operative note: Patient brought to the OR and placed in the supine position. General anesthesia begun. Patient prepped and draped in the usual sterile fashion. Marcaine 0.5% infiltrated locally. 15 blade used to make a 1 cm infraumbilical midline incision. Subcutaneous tissue divided and fascia identified and divided. #1 Vicryl stay suture placed and peritoneal cavity entered with sharp and blunt dissection. 12 mm trocar placed into the peritoneal cavity under direct vision. Pneumoperitoneum established. 3 5 mm trochars placed, one in the epigastrium just to the right of midline and 2 in the right subcostal region. Laparoscopy revealed extensive adhesion in the right upper quadrant. These were taken down with LigaSure. Approximately 10 minutes was utilized to take down all of these adhesions. Then the gallbladder was identified and it was distended and acutely inflamed. Fundus was retracted superiorly and infundibulum was identified and retracted inferolaterally. Cystic duct and cystic artery were clearly identified with blunt dissection. Clips were placed and both structures divided. Then cautery was used to remove the gallbladder from the liver bed. Bleeding on the liver bed was controlled with cautery. Gallbladder was retrieved through the umbilicus via Endo Catch bag. Right upper quadrant was irrigated and effluent was clear with no evidence of bleeding or bile leakage appreciated. Then all trochars removed under direct vision. Stay sutures tied to each other to reapproximate the fascial defect. Wound irrigated and bleeding controlled with cautery. Then 3-0 chromic used to reapproximate subcutaneous tissue and close skin. Sterile dressing applied. Patient awakened and taken to recovery room in good general condition. CC:
[2022-03-10] MEDS: HYDROMORPHONE HCL 1 MG/ML INJ IV PRN ×6 (10:25→20:40)
[2022-03-10] MEDS ORDERED: HYDROMORPHONE HCL 1 MG/ML INJ ONE ×2 (10:29→10:54)
[2022-03-10] MEDS ORDERED: PROMETHAZINE INJ 25 MG/ML AMP ONE (10:40)
[2022-03-10] MEDS ORDERED: METOCLOPRAMIDE 10 MG/2mL INJ ONE (10:59)
--- NOTE | 2022-03-10 13:05 | P.PN ---
Subjective Date of Service: 03/10/22 Chief Complaint: Chest pain Subjective: No new changes (Status post lap cholecystectomy Complaining of pain around surgical site Started on sips of water now, denies any nausea) Physical Examination - Vital Signs Temperature: 98.3 F Blood Pressure: 121/64 Pulse: 65 Respirations: 20 Pulse Ox (%): 99 Assessment And Plan Physician Review: Patient Assessed, Agree with Above Assessment and Plan Physician Review Additional Text: - Physical Exam General: Alert, In no apparent distress, Oriented x3, Obese HEENT: Atraumatic, Normocephalic, PERRLA Neck: Supple, 2+ carotid pulse no bruit, JVD not distended Respiratory: Clear to auscultation bilaterally, Normal air movement Cardiovascular: Normal pulses, Regular rate/rhythm, Normal S1 S2 Gastrointestinal: Normal bowel sounds, Soft and benign, Non-distended Musculoskeletal: No clubbing, No swelling Integumentary: No rashes, No breakdown Neurological: Normal speech, Normal strength at 5/5 x4 extr Urinary: Dialysis catheter External genitalia: No edema, No lesions Rectal: Normal, Average - Studies CT abdomen as well as abdominal ultrasound-FINDINGS: Multiple small gallstones. Portions of the gallbladder wall are borderline thickened .The biliary tree is normal caliber. IMPRESSION: Cholelithiasis Borderline gallbladder wall thickening Impression Acute Cholelithiasis with cholecystitis-Status post lap cholecystectomy today Plan Continue gentle IV fluid Continue pain regimen Continue empirical antibiotics with Levaquin/Flagyl Early ambulation Possible discharge in a.m. Appreciate evaluation by surgeryDr. Trinidad 03/10/22 13:04 Time Spent Managing PTS Care (In Minutes): 25
[2022-03-10] MEDS: Levofloxacin500mg IV 500 MG/100 ML BAG IV SCH (14:45)
[2022-03-10] MEDS: ONDANSETRON 4 MG/2 ML VIAL IV PRN (16:36)
[2022-03-10 20:38] VITALS: O2SAT 99
[2022-03-11] MEDS: METRONIDAZOLE 500mg IVPB 500 MG/100 ML BAG IV SCH ×2 (02:13→08:29)
[2022-03-11 05:51] LABS: Albumin 2.9 g/dL (3.4-5.0); Bilirubin Total 0.5 mg/dL (0.2-1.0); Potassium 3.9 mmol/L (3.5-5.1); Protein, Total 5.7 g/dL (6.4-8.2)
[2022-03-11 06:03] LABS: Hematocrit 34.9 % (36.0-45.0); Lymphocytes % 17.4 % (15.3-44.8); MPV 7.3 fL (7.6-11.3); RBC Red Blood Cell Count 3.95 M/uL (3.86-4.86)
[2022-03-11] MEDS: NA CHLORIDE 0.9% 1,000 ML IV SCH (06:15)
[2022-03-11] MEDS: FAMOTIDINE 20 MG TAB PO SCH (08:28)
[2022-03-11] MEDS: ONDANSETRON 4 MG/2 ML VIAL IV PRN (08:29)
[2022-03-11] MEDS: HYDROCODONE/APAP 7.5/325 MG TAB PO PRN ×2 (08:29→12:19)
[2022-03-11 09:09] VITALS: TEMP 98.5
--- NOTE | 2022-03-11 10:15 | P.PN ---
Date of Service: 03/11/22 Subjective: Patient is awake and alert with no pain. Patient is tolerating diet. Patient is ambulating. Objective: Vital signs stable, afebrile WBC is 11.5 Abdomen: Soft, nondistended, positive bowel sounds, nontenderdressing is clean dry and intact Assessment: Status post laparoscopic cholecystectomy Plan: Patient is doing well. Patient is cleared from surgery point of view for discharge. Discharge instructions given. Augmentin 875 for 10 days. Follow-up my office 2 weeks. CC:
--- NOTE | 2022-03-11 12:00 | P.DS ---
Discharge Date: 03/11/22 Disposition: ROUTINE DISCHARGE Discharge Condition: GOOD Reason for Admission: Chest pain Brief History of Present Illness: Pt is a 32-year-old female with no significant past medical history presented after developing epigastric area pain radiating to the right upper quadrant and to the back since the last 2 days. Symptoms have been associated with 1 episode of vomiting last p.m. Patient denies any headache dizziness. She denies any shortness of breath or palpitation. On arrival in the ED imaging studies shows evidence of cholelithiasis with mild thickening of the gallbladder on CT. General surgery has been consulted and plan to take patient for surgery in a.m. Patient is being admitted for acute cholecystitis with cholelithiasis. Hospital Course: Patient is doing well s/p lap francois. Patient is stable for discharge home with outpt follow-up. Vital Signs/Physical Exam: Temp Pulse Resp BP Pulse Ox 98.5 F 72 12 95/52 L 98 03/11/22 08:00 03/11/22 08:00 03/11/22 09:29 03/11/22 08:00 03/11/22 09:29 General: Alert, In no apparent distress, Oriented x3 Laboratory Data at Discharge: WBC 11.5 K/uL (4.3-10.9) H D 03/11/22 05:10 Hgb 11.9 g/dL (12.0-15.0) L 03/11/22 05:10 Hct 34.9 % (36.0-45.0) L 03/11/22 05:10 Plt Count 277 K/uL (152-406) 03/11/22 05:10 Sodium 140 mmol/L (136-145) 03/11/22 05:10 Potassium 3.9 mmol/L (3.5-5.1) 03/11/22 05:10 BUN 5 mg/dL (7-18) L 03/11/22 05:10 Creatinine 0.53 mg/dL (0.55-1.3) L 03/11/22 05:10 Glucose 136 mg/dL (74-106) H 03/11/22 05:10 Total Bilirubin 0.5 mg/dL (0.2-1.0) 03/11/22 05:10 AST 33 U/L (15-37) 03/11/22 05:10 ALT 50 U/L (12-78) 03/11/22 05:10 Alkaline Phosphatase 55 U/L (45-117) 03/11/22 05:10 Home Medications: Ciprofloxacin HCl 500 mg PO BID #14 tablet 03/11/22 Hydrocodone 7.5/APAP 325 [[place] 7.5/325 mg*] 1 tab PO Q4H PRN #30 tab 03/11/22 New Medications: Ciprofloxacin HCl 500 mg PO BID #14 tablet Hydrocodone 7.5/APAP 325 [[place] 7.5/325 mg*] 1 tab PO Q4H PRN #30 tab PRN Reason: Pain Scale 5-7 (Moderate) Physician Discharge Instructions: Remove outer dressing in a.m. and shower Keep Steri-Strips on at all times Incentive spirometry as ordered Augmentin 875 mg p.o. every 12 Diet: Regular Activity: No lifting more than 10 lbs Followup: Sim Trinidad MD [ACTIVE - CAN ADMIT] - 03/26/22 Time spent managing pt's care (in minutes): 35
[2022-03-11 12:34] VITALS: BP 104/57
--- NOTE | 2022-03-13 07:56 | EKG ---
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
== END 2022-03-11 13:15 | disposition home or self-care (01) | DRG 419 ==
LOC: ER 05:16 → ERHOLD 14:47 → 2ND 17:50 → OBSVTOIN 18:50
PROVIDERS: ADMIT Internal Medicine; ATTEND Internal Medicine
PROC: 0DNW4ZZ Release Peritoneum, Percutaneous Endoscopic Approach (ICD-10-PCS; 2022-03-10)
PROC: 0FT44ZZ Resection of Gallbladder, Percutaneous Endoscopic Approach (ICD-10-PCS; principal; 2022-03-10 09:00)
DX: K80.12 Calculus of gallbladder with acute and chronic cholecystitis without obstruction (principal); K66.0 Peritoneal adhesions (postprocedural) (postinfection); Z88.0 Allergy status to penicillin; Z86.32 Personal history of gestational diabetes; Z20.822 Contact with and (suspected) exposure to COVID-19
CPT/HCPCS: 36415; 71045; 71260; 76705; 80048; 80053; 80076; 81003; 81025; 84484; 85025; 88304; 93005; 94010; 96361; 96365; 96375; 99285; G0378; J1100; J1170; J2270; J2405; J2550; J2704; J2765; J3010; J3490; J7030; J7040; J7120; Q9967; U0003

== ENCOUNTER 2023-08-14 11:12 | Emergency (ER) | payer OTHER, SELFPAY ==
--- OUTSIDE RECORDS SUMMARY | 2023-08-14 11:16 | XMS REPORT | Continuity of Care Document ---
:1990 Author Organization [facility] t Address [address] [facility] [place] [address] Care Team Providers Name Role Phone Jhoan Guzmán Primary Care Physician [phone] Mary Marquez Attending Clinician Unavailable Jhoan Guzmán Attending Clinician Unavailable Milagros Hare Attending Clinician Daniela Mckenzie CNM Attending Clinician Doctor Unassigned, [place] Attending Clinician Unavailable NAVEEN BHAT Attending Clinician Unavailable Res-Colpo/Leep, [facility] Attending Clinician Unavailable Naveen Bhat MD Attending Clinician JHOAN SALDIVAR Attending Clinician Unavailable Abby Pimentel Attending Clinician [phone] Tommy Mcdonough Attending Clinician Payers Payer Name Policy Type Policy Number Effective Date Expiration Date S ource Problems Condition Condition Condition Status Onset Resolution Last Treating Co mments Source Name Details Category Date Date Treatment Clinician Date Cervical Cervical Disease Active Overview: Un ilya high risk high risk 8-15 Formattin i ty of human human 00:00: g of this [place] papillomav papillomav 00 note Me dical irus (HPV) irus (HPV) might be Branch DNA test DNA test different positive positive from the original. HPV + BMI BMI Disease Active Univers 27.0-27.9, 27.0-27.9, 8-11 it y of adult adult 00:00: [place] 00 Medical Branch BMI BMI Disease Active Univers 27.0-27.9, 27.0-27.9, 8-11 it y of adult adult 00:00: [place] 00 Medical Branch Need for Need for Disease Active Unive rs HPV HPV 8-11 ity of [place] Tobacco Tobacco Disease Active Univers use use 1-30 ity of disorder disorder 00:00: [place] 00 Medical Branch Encounter Encounter Disease Active Uni vers for for 1-30 ity of removal removal 00:00: [place] and and Medical reinsertio reinsertio Br anch n of n of Nexplanon Nexplanon Irregular Irregular Disease Active Uni vers bleeding bleeding 02-12 ity of 00:00: [place] 00 Medical Branch Nexplanon Nexplanon Disease Active Uni vers in place in place 02-12 ity of 00:00: [place] 00 Medical Branch 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 brain cyst brain cyst 22:29:17 l (disorder) (disorder) He rmann Active Problem 11/25/2019 [facility] Migraine Migraine Problem Active 2019-11-25 Memoria (disorder) (disorder) 22:29:17 l Active [place] Problem 11/25/2019 [facility] Allergies, Adverse Reactions, Alerts Allergy Allergy Status Severity Reaction(s) Onset Inactive Treating Comm ents Source Name Type Date Date Clinician CEFACLOR DRUG Active Unknown-Cmnt Un ilya INGREDI 02-12 ity of 00:00: [place] 00 Medical Branch PENICILL Drug Active Anaphylaxis Uni vers INS Class 02-12 ity of 00:00: [place] 00 Medical Branch Cefaclor Propensi Active Unknown - States Uni vers ty to See comments 02-12 her ity of adverse 00:00: mother [place] reaction 00 told her Medica l s she was Branch allergic when she was 5yrs Penicill Propensi Active Anaphylaxis U nivers ins ty to 03 ity of adverse 00:00: [place] reaction 00 Medical s Branch penicill penicill Active Memori a ins ins l [place] Social History Social Habit Start Date Stop Date Quantity Comments Source Sexual orientation Univer sity of [facility] History SDSD University o f Alcohol Frequency [place] M ed[facility] History SDSD University o f Alcohol Std Drinks [place] [facility] [place] History [facility] University o f Alcohol Binge [place] [facility] al [facility] History of tobacco Cigarette Smoker University of use [facility] Exposure to 2022-08-05 2022-08-15 Not sure University SARS-CoV-2 (event) 00:00:00 11:18:00 [facility] Tobacco use and 2022-05-23 2022-05-23 User of Universit y of exposure 00:00:00 00:00:00 smokeless [facility] tobacco [place] Alcohol intake 2022-05-23 2022-05-23 Current drinker Unive rsity of 00:00:00 00:00:00 of alcohol [facility] (finding) [place] Tobacco Comment 2022-05-23 2022-05-23 Vapes daily x 3 Univ ersity of 00:00:00 00:00:00 years [facility] History of Social 2022-05-23 2022-05-23 Univers ity of function 00:00:00 00:00:00 [facility] Alcohol Comment 2022-05-23 2022-05-23 rarely- special Univ ersity of 00:00:00 00:00:00 occasions [facility] Sex Ass[birth year] Universit y of 00:00:00 00:00:00 [facility] Smoking Status Start Date Stop Date Source Ex-smoker 2022-05-23 00:00:00 2022-05-23 00:00:00 Universi ty [facility] Social History 2019-09-21 15:45:59 [facility] Medications Ordered Filled Start Stop Current Ordering Indication Dosage Frequency Signature Comments Components Source Medication Medication Date Date Medication? Clinician (SIG) Name Name No known 2021-10 No No known Unive rs medications 1-03 medication it y of 11:03: [address] No known 2021-10 No No known Unive rs medications - medication it y of 11:03: [address] No known 2021-10 No No known Unive rs medications -03 medication it y of 11:03: [address] No known 2021-10 No No known Unive rs medications - medication it y of 11:03: [address] No known 2021-10 No No known Unive rs medications 1- medication it y of 11:03: s [address] No known 2021-10 No No known Unive rs medications - medication it y of 11:03: s [address] No known 2021-10 No No known Unive rs medications 1-03 medication it y of 11:03: s [address] No known No No known Unive rs medications - medication it y of 11:01: [address] propranolol 2018-10 Yes 10 mg = 1 M emoria 10 mg oral 2-10 tab, PO, l tablet 16:14: BID, # 60 Miko n 00 tab, 2 Refill(s), Pharmacy: [facility] [place] [id number] propranolol 2018-10 Yes 10 mg = 1 M emoria 10 mg oral 2-10 tab, PO, l tablet 16:14: BID, # 60 Miko n 00 tab, 2 Refill(s), Pharmacy: [place] [facility] [id number] Immunizations Ordered Filled Date Status Comments Source Immunization Name Immunization Name [facility] 2022-05-23 Completed University of 00:00:00 [facility] 2022-05-23 Completed University of 00:00:00 [facility] 2022-05-23 Completed University of 00:00:00 [facility] 2022-05-23 Completed University of 00:00:00 [facility] 2022-05-23 Completed University of 00:00:00 [facility] 2022-05-23 Completed University of 00:00:00 [facility] 2022-05-23 Completed University of 00:00:00 [facility] 2022-05-23 Completed University of 00:00:00 [facility] TDAP 2014-06-13 Completed University of 00:00:00 [facility] TDAP 2014-06-13 Completed University of 00:00:00 [facility] TDAP 2014-06-13 Completed University of 00:00:00 [facility] TDAP 2014-06-13 Completed University of 00:00:00 [facility] TDAP 2014-06-13 Completed University of 00:00:00 [facility] TDAP 2014-06-13 Completed University of 00:00:00 [facility] TDAP 2014-06-13 Completed University of 00:00:00 [place] [facility] TDAP 2014-06-13 Completed University of 00:00:00 [place] [facility] Rubella 2010-05-16 Completed University of 00:00:00 [place] [facility] Rubella 2010-05-16 Completed University of 00:00:00 [place] [facility] Rubella 2010-05-16 Completed University of 00:00:00 [place] [facility] Rubella 2010-05-16 Completed University of 00:00:00 [place] [facility] Rubella 2010-05-16 Completed University of 00:00:00 [place] [facility] Rubella 2010-05-16 Completed University of 00:00:00 [place] [facility] Rubella 2010-05-16 Completed University of 00:00:00 [place] [facility] Rubella 2010-05-16 Completed University of 00:00:00 [place] [facility] Td 2006-02-12 Completed University of 00:00:00 [place] [facility] [place] Td 2006-02-12 Completed University of 00:00:00 [place] [facility] Td 2006-02-12 Completed University of 00:00:00 [place] [facility] Td 2006-02-12 Completed University of 00:00:00 [place] [facility] Td 2006-02-12 Completed University of 00:00:00 [place] [facility] Td 2006-02-12 Completed University of 00:00:00 [place] [facility] Td 2006-02-12 Completed University of 00:00:00 [place] [facility] Td 2006-02-12 Completed University of 00:00:00 [facility] Branch Rubella Unknown Completed [facility] TD, NOS Unknown Completed [facility] TDAP Unknown Completed [facility] HPV9 Unknown Completed [facility] Rubella Unknown Completed [facility] TD, NOS Unknown Completed [facility] TDAP Unknown Completed [facility] HPV9 Unknown Completed [facility] Rubella Unknown Completed [facility] TD, NOS Unknown Completed [facility] TDAP Unknown Completed [facility] HPV9 Unknown Completed [facility] Vital Signs Vital Name Observation Time Observation Value Comments Source Systolic blood 2022-08-15 16:17:00 118 mm[Hg] Univer sity of pressure [facility] Diastolic blood 2022-08-15 16:17:00 80 mm[Hg] Unive rsity of pressure [facility] Heart rate 2022-08-15 16:17:00 80 /min [facility] Body temperature 2022-08-15 16:17:[address] [facility] height 2022-08-15 16:17:00 162.6 cm [facility] Body weight 2022-08-15 16:17:00 73.029 kg [facility] BMI 2022-08-15 16:17:00 27.64 kg/m2 [facility] Heart Rate 2019-09-21 15:45:00 [facility] Respitory Rate 2019-09-21 15:45:00 Memori al [place] Height 2019-09-21 15:45:00 165.1 cm [facility] [place] Weight 2019-09-21 15:45:00 [facility] BMI Calculated 2019-09-21 15:45:00 Memori al [place] Systolic (mm Hg) 2019-09-21 15:45:00 Azar rial [place] Diastolic (mm Hg) 2019-09-21 15:45:00 Mem orial [place] Systolic (mm Hg) 2019-07-13 14:58:00 Azar rial [place] Diastolic (mm Hg) 2019-07-13 14:58:00 Mem orial [place] Heart Rate 2019-07-13 14:58:00 [facility] Respitory Rate 2019-07-13 14:58:00 Memori al [place] Height 2019-07-13 14:58:00 165.1 cm [facility] Weight 2019-07-13 14:58:00 [facility] [place] BMI Calculated 2019-07-13 14:58:00 Memori al [place] Procedures Procedure Date / Time Performing Clinician Source Performed POCT TEST 2022-08-15 16:20:00 Naveen Bhat [facility] BCCS-RELATED 2022-08-15 05:01:00 Doctor Unassigned, No 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 350.1.13.10 ity of REGIONAL 4.2.7.2.686 Neeraj as MATERNAL [phone] [facility] ical & CHILD [address] [place] [address] 2022-09-25 2022-09-25 Case Jc, UNIVERSIT [id number] Univers 00:00:00 00:00:00 Management Milagros Y HEALTH 350.1.13.10 ity of [place] [id number] [address] 2022-09-12 2022-09-12 Telephone [facility] [id number] Univers 00:00:00 00:00:00 Daniela A COMPUTER NETWORK AND SYSTEMS ENGINEER 350.1.13.10 i ty of REGIONAL 4.2.7.2.686 Neeraj as MATERNAL [id number] [facility] ical & CHILD [address] [place] [address] 2022-08-20 2022-08-20 Patient Doctor UNIVERSIT [id number] Univers 00:00:00 00:00:00 Secure Msg Unassigned, Y HEALTH 350.1.13.10 ity of [place] [id number] [address] 2022-08-15 2022-08-15 Outpatient R CAROLANN [facility] [id number] Univers 10:00:00 13:56:21 NAVEEN camp of [facility] 2022-08-15 2022-08-15 Office Res-Colpo/Leep, [facility] UNIVERSI T 1.2.840.114 [id number] Univers 10:00:00 13:56:21 Visit Naveen Bhat Y HEALTH 350.1.13.10 ity of [place] [id number] [address] 2022-08-15 2022-08-15 Orders Doctor THEA 1.2.840.114 [id number] Univers 00:00:00 00:00:00 Only Unassigned, МАРИЯ 350.1.13.10 ity of [place] [facility] 4.2.7.2.686 Neeraj as [id number] [address] 2022-06-24 2022-06-24 Outpatient R YARIEL [facility] [id number] Univers 09:00:00 09:00:00 JHOAN jones [facility] 2022-06-14 2022-06-14 Telephone [facility] [id number] [id number] Univers 00:00:00 00:00:00 Abby Ceja COMPUTER NETWORK AND SYSTEMS ENGINEER 350.1.13.10 ity of REGIONAL 4.2.7.2.686 Neeraj as MATERNAL [phone] Med ical & CHILD [address] [place] [address] 2022-06-14 2022-06-14 Patient Doctor [facility] 1.2.840.114 [id number] Univers 00:00:00 00:00:00 Secure Msg Unassigned, COMPUTER NETWORK AND SYSTEMS ENGINEER 350.1.13.10 ity of [place] REGIONAL 4.2.7.2.686 Neeraj as MATERNAL [id number] Med ical & CHILD [address] [place] [address] 2022-06-12 2022-06-12 Orders Doctor THEA 1.2.840.114 [id number] Univers 00:00:00 00:00:00 Only Unassigned, МАРИЯ 350.1.13.10 ity of [place] [facility] 4.2.7.2.686 Neeraj as [id number] [address] 2022-06-06 2022-06-06 [facility] [id number] Univers 09:15:00 10:25:39 JHOAN gaitan robert [facility] 2022-06-06 2022-06-06 Office [facility] 1.2.840.114 [id number] Univers 09:15:00 10:25:39 Visit Jhoan Roberson COMPUTER NETWORK AND SYSTEMS ENGINEER 350.1.13.10 ity of REGIONAL 4.2.7.2.686 Neeraj as MATERNAL [phone] Med ical & CHILD [address] [place] [address] 2022-06-06 2022-06-06 Outpatient R YARIEL [facility] [id number] Univers 09:15:00 09:15:00 JHOAN camp o robert [facility] 2022-05-23 2022-05-23 Outpatient R YARIEL [facility] [id number] Univers 13:15:00 14:01:24 JHOAN camp o robert [facility] 2022-05-23 2022-05-23 Outpatient R [facility]IEL [facility] [id number] Univers 13:15:00 14:01:24 JHOAN jones [facility] 2022-05-23 2022-05-23 Outpatient R YARIEL [facility] [id number] Univers 13:15:00 14:01:24 JHOAN gaitan [facility] 2022-05-23 2022-05-23 Office [facility] 1.2.840.114 [id number] Univers 13:15:00 14:01:24 Visit Jhoan R COMPUTER NETWORK AND SYSTEMS ENGINEER 350.1.13.10 ity of [facility] 4.2.7.2.686 Neeraj as MATERNAL [id number] [facility] [address] [place] [address] 2022-05-23 2022-05-23 Orders Doctor THEA 1.2.840.114 [id number] Univers 00:00:00 00:00:00 Only Unassigned, МАРИЯ 350.1.13.[address] 4.2.7.2.686 Neeraj as [id number] [address] 2019-11-23 2019-11-23 Ambulatory nullFlavo MNA [id number] Memoria 16:15:00 16:15:00 Pre-Reg r Neurology 03 l Jinny [place] 2019-11-23 2019-11-23 Ambulatory nullFlavo MNA [id number] Memoria 16:15:00 16:15:00 Pre-Reg r Neurology 03 l Jinny [place] 2019-11-23 2019-11-23 Outpatient MHIE GUANACO [id number] Memoria 10:15:00 10:15:00 03 l [place] 2019-11-23 2019-11-23 Outpatient Ceasar, MHMISCHER MHMISCHER [id number] 10:15:00 10:15:00 Tommy 03 Minor 2019-09-21 2019-09-22 Outpatient nullFlavo MNA [id number] Memoria 15:45:00 05:59:59 r Neurology 02 elizabeth Nina 2019-09-21 2019-09-22 Outpatient nullFlavo MNA [id number] Memoria 15:45:00 05:59:59 r Neurology 02 elizabeth Nina 2019-09-21 2019-09-21 Outpatient Ceasar MHMISCHER MHMISCHER [id number] 09:45:00 23:59:59 Tommy Minor 2019-09-21 2019-09-21 Outpatient MHIE MHIE [id number] Memoria 09:45:00 09:45:00 02 elizabeth Nina 2019-08-24 2019-08-24 Ambulatory nullFlavo MNA [id number] Memoria 17:15:00 17:15:00 Pre-Reg r Neurology 01 elizabeth Stearns [place] 2019-08-24 2019-08-24 Ambulatory nullFlavo MNA [id number] Memoria 17:15:00 17:15:00 Pre-Reg r Neurology 01 elizabeth Stearns [place] 2019-08-24 2019-08-24 Outpatient MHIE MHIE [id number] Memoria 11:15:00 11:15:00 elizabeth Vanleer 2019-08-24 2019-08-24 [facility] [id number] 11:15:00 11:15:00 Tommy Minor 2019-07-13 2019-07-14 Outpatient nullFlavo MNA [id number] Memoria 15:00:00 04:59:59 r Neurology 00 elizabeth Joseann 2019-07-13 2019-07-14 Outpatient nullFlavo MNA [id number] Memoria 15:00:00 04:59:59 r Neurology 00 elizabeth Nina 2019-07-13 2019-07-13 Outpatient Ceasar MHMISCHER MHMISCHER [id number] 10:00:00 23:59:59 Tommy 00 Minor 2019-07-13 2019-07-13 Outpatient MHIE MHIE [id number] Memoria 10:00:00 10:00:00 00 l [place] Results Test Description Test Time Test Comments Results Result Comments Source POCT TEST 2022-08-15 16:20:00 Test Item Value Reference Range Interpretation Comme nts POCT PREG (test code = 1605) Negative On board controls acceptable with C Line (test code = 3574) Yes POCT PREG LOT # (test code = 3575) POCT PREG TEST DATE (test code = 3576) Lab Interpretation (test code = 63098-5) Normal [facility] [id number] 16:20:00 Test Item Value Reference Range Interpretation Comments POCT PREG (test code = 1605) Negative On board controls acceptable with C Yes Line (test code = 3574) POCT PREG LOT # (test code = 3575) POCT PREG TEST DATE (test code = 3576) Lab Interpretation (test code = Normal 15511-1) [facility] [id number] 16:20:00 Test Item Value Reference Range Interpretation Comments POCT PREG (test code = 1605) Negative On board controls acceptable with C Yes Line (test code = 3574) POCT PREG LOT # (test code = 3575) POCT PREG TEST DATE (test code = 3576) Lab Interpretation (test code = Normal 81513-7) [facility] [id number] 16:20:00 Test Item Value Reference Range Interpretation Comments POCT PREG (test code = 1605) Negative On board controls acceptable with C Yes Line (test code = 3574) POCT PREG LOT # (test code = 3575) POCT PREG TEST DATE (test code = 3576) Lab Interpretation (test code = Normal 19735-5) [facility]
[2023-08-14] MEDS ORDERED: IBUPROFEN 200 MG TAB PO ONE (11:40)
--- NOTE | 2023-08-14 12:04 | RAD REPORT ---
EXAM DESCRIPTION: RAD - Foot Right 3 View - 08/14/2023 11:48 am CLINICAL HISTORY: SMASH INJURY COMPARISON: No comparisons TECHNIQUE: Right foot, 3 views. FINDINGS: No fracture, dislocation or periosteal reaction. No air or foreign body in the soft tissues. IMPRESSION: Negative right foot examination.
--- NOTE | 2023-08-14 12:24 | ER ---
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 Redness, ll1 pain, swelling noted. Coronavirus screen: Vaccine status: Patient reports being unvaccinated. Client denies travel out of the [place] in the last 14 days. At this time, the client does not indicate any symptoms associated with coronavirus-19. Ebola Screen: Patient denies travel to an Ebola-affected area in the 21 days before illness onset. Initial Sepsis Screen: Does the patient meet any 2 criteria? No. Patient's initial sepsis screen is negative. Does the patient have a suspected source of infection? Yes: Bone or joint infection. Risk Assessment: Do you want to hurt yourself or someone else? Patient reports no desire to harm self or others. Onset of symptoms was August 14, 2023. 11:22 Method Of Arrival: Ambulatory ll1 11:22 Acuity: BRODY 4 ll1 Triage Assessment: 11:24 General: Appears uncomfortable, Behavior is calm, cooperative, appropriate for age. ll1 Pain: Complains of pain in right foot Pain currently is 7 out of 10 on a pain scale. Quality of pain is described as aching, throbbing. Derm: abrasion to R foot. Musculoskeletal: Circulation, motion, and sensation intact. Capillary refill < 3 seconds, Swelling present in right foot. Injury Description: Crush injury. 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 - Social history:: Smoking status: Reported history of juuling and/or vaping. Patient denies any tobacco usage or history of. Screenin:29 [facility] ED Fall Risk Assessment (Adult) History of falling in the last 3 months, kc6 including since admission No falls in past 3 months (0 pts) Confusion or Disorientation No (0 pts) Intoxicated or Sedated No (0 pts) Impaired Gait No (0 pts) Mobility Assist Device Used No (0 pt) Altered Elimination No (0 pt) Score/Fall Risk Level 0 - 2 = Low Risk. Abuse screen: Denies threats or abuse. Denies injuries from another. Nutritional screening: No deficits noted. Tuberculosis screening: No symptoms or risk factors identified. Assessment: 11:24 Reassessment: please see triage assessment. kc6 12:20 Musculoskeletal: Circulation, motion, and sensation intact. Capillary refill < 3 ll1 seconds. 12:29 Reassessment: No changes from previously documented assessment. Patient and/or family ll1 updated on plan of care and expected duration. Pain level reassessed. Patient is alert, oriented x 3, equal unlabored respirations, skin warm/dry/pink. Vital Signs: 11:22 BP 131 / 86; Pulse 89; Resp 16; Temp 98.4; Pulse Ox 99% ; Weight 77.11 kg; Height 5 ft. ll1 0 in. ; Pain 7/10; 11:22 Body Mass Index 33.20 (77.11 kg, 152.4 cm) ll1 11:22 Pain Scale: Adult ll1 ED Course: 11:16 Patient arrived in ED. mg5 11:17 [facility]elsa Foster FNP [facility] 11:17 Tavo Yousif MD is Attending Physician. [facility] 11:18 Gloria Alberto, CLAUDE is Primary Nurse. kc6 11:23 Triage completed. ll1 11:24 Arm band placed on Patient placed in an exam room, on a stretcher. ll1 11:30 Patient has correct armband on for positive identification. Bed in low position. Call kc light in reach. Side rails up X 1. Client placed on continuous cardiac and pulse oximetry monitoring. NIBP monitoring applied. 11:49 XRAY Foot RIGHT 3 View In Process Unspecified. EDMS 12:20 Provided Education on: N/A. ll1 12:20 Crutch training done. Giles wrap to right foot. ll1 12:29 No provider procedures requiring assistance completed. Patient did not have IV access ll1 during this emergency room visit. Administered Medications: : Drug: Ibuprofen PO 600 mg PO once Route: PO; kc6 12:34 Follow up: Response: No adverse reaction; Pain is decreased ll1 Medication: 12:20 VIS not applicable for this client. ll1 Outcome: 12:23 Discharge ordered by MD. pham : Patient left the ED. ll1 : Discharged to home ambulatory, ll1 : Condition: stable : Discharge instructions given to patient, Instructed on discharge instructions, follow up and referral plans. crutch walking, Demonstrated understanding of instructions, follow-up care, crutch walking, Signatures: Dispatcher [employer] EDMS Pilar Rudolph RN RN ll1 Celsa Foster FNP FNP jh7 Campbell, Kaitlyn RN RN kc6 Klaudia Steward 5
--- NOTE | 2023-08-14 12:24 | EDPHYS ---
Physician Documentation [facility] Name: Sherie Andres Age: 33 yrs Sex: Female : 1990 Arrival Date: 08/14/2023 Time: 11:12 Bed 14 Private MD: ED Physician Tavo Yousif HPI: 08/14 11:23 This 33 yrs old Female presents to ER via Ambulatory with complaints of Motor Fell on jh7 Foot. 11:23 Onset: The symptoms/episode began/occurred acutely. Associated signs and symptoms: The 7 patient has no apparent associated signs or symptoms. 33-year-old female reports that a 50 pound motor fell out of a box and onto her right foot. Complains of pain with ambulation and movement of the foot.. 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 - Social history:: Smoking status: Reported history of juuling and/or vaping. Patient denies any tobacco usage or history of. ROS: 11:23 Constitutional: Negative for fever, chills, and weight loss, Eyes: Negative for injury, jh7 pain, redness, and discharge, Neck: Negative for injury, pain, and swelling, Cardiovascular: Negative for chest pain, palpitations, and edema, Respiratory: Negative for shortness of breath, cough, wheezing, and pleuritic chest pain, Abdomen/GI: Negative for abdominal pain, nausea, vomiting, diarrhea, and constipation, Back: Negative for injury and pain, Skin: Negative for injury, rash, and discoloration, Neuro: Negative for headache, weakness, numbness, tingling, and seizure, 11:23 MS/extremity: Positive for injury or acute deformity, contusion, decreased range of motion, pain, tingling, of the right foot, 11:23 All other systems are negative, Exam: 11:23 Constitutional: This is a well developed, well nourished patient who is awake, alert, jh7 and in no acute distress. Head/Face: Normocephalic, atraumatic. Neck: Trachea midline, no thyromegaly or masses palpated, and no cervical lymphadenopathy. Supple, full range of motion without nuchal rigidity, or vertebral point tenderness. No Meningismus. Cardiovascular: Regular rate and rhythm with a normal S1 and S2. No gallops, murmurs, or rubs. Normal PMI, no JVD. No pulse deficits. Respiratory: Lungs have equal breath sounds bilaterally, clear to auscultation and percussion. No rales, rhonchi or wheezes noted. No increased work of breathing, no retractions or nasal flaring. Abdomen/GI: Soft, non-tender, with normal bowel sounds. No distension or tympany. No guarding or rebound. No evidence of tenderness throughout. Skin: Warm, dry with normal turgor. Normal color with no rashes, no lesions, and no evidence of cellulitis. Neuro: Awake and alert, GCS 15, oriented to person, place, time, and situation. Motor strength 5/5 in all extremities. Sensory grossly intact. Normal gait. 11:23 Musculoskeletal/extremity: Extremities: contusion, Ecchymosis present at the R distal first metatarsal extending to the dorsum of the foot, ROM: limited active range of motion due to pain, in the right foot, Circulation is intact in all extremities. Pulses: are normal with no appreciated deficits, Perfusion: the extremity is normally perfused throughout, pink, warm, with brisk capillary refill, Sensation intact. Vital Signs: 11:22 BP 131 / 86; Pulse 89; Resp 16; Temp 98.4; Pulse Ox 99% ; Weight 77.11 kg; Height 5 ft. ll1 0 in. ; Pain 7/10; 11:22 Body Mass Index 33.20 (77.11 kg, 152.4 cm) ll1 11:22 Pain Scale: Adult ll1 MDM: 11:17 Patient medically screened. [facility] 12:12 Differential diagnosis: Contusion, fracture, sprain. Data reviewed: vital signs, nurses [facility] notes, radiologic studies, plain films. I considered the following discharge prescriptions or medication management in the emergency department Medications were administered in the Emergency Department. See MAR. Counseling: I had a detailed discussion with the patient and/or guardian regarding the historical points, exam findings, and any diagnostic results supporting the discharge/admit diagnosis, to return to the emergency department if symptoms worsen or persist or if there are any questions or concerns that arise at home. Response to treatment: the patient's symptoms have mildly improved after treatment. 08/14 11:24 Order name: XRAY Foot RIGHT 3 View; Complete Time: 12:10 7 08/14 12:10 Order name: Crutches; Complete Time: 12:13 7 08/14 12:10 Order name: Giles Wrap; Complete Time: 12:13 [facility] Administered Medications: 11:29 Drug: Ibuprofen PO 600 mg PO once Route: PO; kc6 12:34 Follow up: Response: No adverse reaction; Pain is decreased ll1 Disposition Summary: 08/14/23 12:23 Discharge Ordered Notes: Location: Home [facility] Problem: new [facility] Symptoms: are unchanged [facility] Condition: Stable [facility] Diagnosis - Contusion of right foot [facility] Followup: [facility] - With: Private Physician - When: 2 - 3 days - Reason: Recheck today's complaints Discharge Instructions: - Discharge Summary Sheet [facility] - Foot Contusion [facility] - Crutch Use, Adult [facility] Forms: - Work release form eh3 - Medication Reconciliation Form 7 - Thank You Letter 7 - Patient Portal Instructions [facility] - Leadership Thank You Letter [facility] Signatures: Dispatcher [employer] Pilar Hudson, RN RN ll1 Celsa Foster FNP CARE MANAGEMENT ASSOCIATE 7 Gloria Alberto RN RN [id number]
[2023-08-14 12:42] VITALS: BP 131/86; TEMP 98.4; O2SAT 99
== END 2023-08-14 12:29 | disposition home or self-care (01) ==
LOC: ER 11:12
DX: S90.31XA Contusion of right foot, initial encounter (principal)
CPT/HCPCS: 99284